=== PATIENT | male | born 1955 | race Caucasian/White ===

== ENCOUNTER → 2016-06-11 | Outpatient (CLI) | payer OTHER ==
[2016-06-11 07:27] LABS: Blood Urea Nitrogen 12 mg/dL (9-20); Non-African American GFR(MDRD) >60 (>60 ml/min/1.73 sqM)
--- NOTE | 2016-06-11 09:27 | MR ---
EXAMINATION TYPE: MR brain wo/w con DATE OF EXAM: 06/11/2016 9:17 AM COMPARISON: NONE HISTORY: tremors, multihance 20ml CONTRAST: Patient received 20 mL intravenous MultiHance gadolinium contrast. Multiplanar and multispin-echo imaging of the brain was performed . Pre and post contrast enhanced i mages are obtained. The ventricles, basal cisterns and sulci overlying the cerebral convexities are minimally enlarged. There is evidence of minimal periventricular white matter ischemic demyelination. Remote deep white matter insults are also noted. No acute edema is seen on diffusion weighted imaging. There is no evidence for midline shift or mass effect. Acute intracranial hemorrhage or extra-axial collection is not evident. No enhancing lesions are seen. The mastoid air cells are well-aerated. Mild chronic ethmoidal sinusitis. IMPRESSION: Minimal Age-related atrophic and chronic small vessel ischemic change. No acute intracranial process at this time. No enhancing lesions are seen.
--- NOTE | 2016-06-11 09:38 | MR ---
EXAMINATION TYPE: MR liver wo/w con DATE OF EXAM: 06/11/2016 9:18 AM COMPARISON: Ultrasound abdomen dated 07/29/2015 HISTORY: per pt. lesion on Liver Multihance 20ml CONTRAST: Standard multiplanar, multisequence MRI departmental protocol utilizing 20 mL intravenous MultiHance gadolinium contrast. FINDINGS: Within the anterior segment right hepatic lobe near the dome of the liver there is a solitary lesion measuring 1.8 cm. The lesion is of increased signal on the T2-weighted data set and of decreased sign al on the T1-weighted data set. Following contrast administration there is peripheral enhancement wit h partial fill in consistent with hemangioma. No additional hepatic lesions are seen. Multiple small gallstones are identified. No evidence for gallbladder wall thickening or pericholecystic fluid. No e vidence for intra or extrahepatic biliary ductal dilatation. The pancreas is homogeneous and free of mass lesion. The spleen is not enlarged. Tiny subcentimeter left renal cortical cyst. No solid renal lesions. No hydronephrosis or nephrolithi asis. IMPRESSION: 1. Hepatic hemangioma. 2. Cholelithiasis.
== END | disposition home or self-care (01) ==
LOC: RADMRIMAIN 07:04
PROVIDERS: ATTEND Psychiatry & Neurology Pain Medicine
DX: G31.1 Senile degeneration of brain, not elsewhere classified (principal); I67.82 Cerebral ischemia; D18.03 Hemangioma of intra-abdominal structures; K80.20 Calculus of gallbladder without cholecystitis without obstruction
CPT/HCPCS: 82565; 84520; 70553; 74183; 36415; A9577

== ENCOUNTER → 2016-06-11 | Outpatient (CLI) | payer OTHER | LOC: RADMRIMAIN 07:21 | PROVIDERS: ATTEND Family Medicine | DX: Z53.9 Procedure and treatment not carried out, unspecified reason (principal) ==

== ENCOUNTER → 2016-06-14 | Outpatient (CLI) | payer OTHER ==
--- NOTE | 2016-06-14 15:02 | NM ---
EXAMINATION TYPE: NM DatScan Brain SPECT DATE OF EXAM: 06/14/2016 2:57 PM COMPARISON: NONE HISTORY: Tremors TECHNIQUE: 10 drops of Lugol's solution was administered 1 hour prior to injection as a thyroid bloc jd agent. After the administration of 4.23 mCi I-123 Ioflupane DaTscan. Images obtained 3 hours p ost injection. SPECT images of the brain were acquired with axial and coronal reconstructions. FINDINGS: The axial SPECT images demonstrate normal background activity. Accounting for head tilt, t here appears to be slight asymmetrically blunted comma-shaped appearance of the right corpus striatum . IMPRESSION: Slightly blunted striatal activity on the left may indicate early changes of idiopathic P arkinson's disease or Parkinsonian syndrome.
== END | disposition home or self-care (01) ==
LOC: RADNMMAIN 09:52
PROVIDERS: ATTEND Psychiatry & Neurology Neurology
DX: G20 Parkinson's disease (principal)
CPT/HCPCS: 78607; A9584

== ENCOUNTER 2016-08-12 06:54 | Day surgery (SDC) | payer OTHER ==
[2016-08-10 09:36] VITALS: BMI 32.3
[~2016-08-12 06:54] MED LIST: DEXAMETHASONE SOD PHOSPHATE 10 MG/ML 1 ML VIAL IV ONE; HEPARIN SODIUM,PORCINE 5,000 UNIT/ML 1 ML VIAL SQ ONE; HYDROmorphone 1 MG/ML 1 ML SYRINGE IVP PRN; LACTATED RINGERS 1,000 ML IV SCH; LIDOCAINE 1% 20 ML VIAL (10MG/ML) FOR IV START INTRADERMA PRN; MIDAZOLAM 2 MG/2 ML VIAL IV PRN; ONDANSETRON 4 MG/2 ML VIAL IVP ONE; SCOPOLAMINE 1.5MG/72HR PATCH TRANSDERM ONE; ceFAZolin 2 GM in SODIUM CHLORIDE 0.9% 100 ML IVPB ONE
[2016-08-12] MEDS ORDERED: IPRATROPIUM-ALBUTEROL 3 ML NEB INHALATION STA (08:36)
[2016-08-12] MEDS ORDERED: BUPIVACAIN-EPI 0.25%-1:200,000 30 ML VIAL SQ ONE ×2 (08:43→09:26)
--- NOTE | 2016-08-12 08:53 | P.GSHP ---
History of Present Illness H&P Date: 08/12/16 Chief Complaint: Right upper quadrant pain This is a 61-year-old male referred from Dr. kuo. Patient points of right quadrant pain. He's had a recent ultrasound shows evidence of cholelithiasis. He presents today for laparoscopic cholecystectomy. 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", parkinsons, leukemia, arthritis in neck History of Any Multi-Drug Resistant Organisms: None Reported Past Surgical History: Hernia Repair, Tonsillectomy Past Anesthesia/Blood Transfusion Reactions: No Reported Reaction Past Psychological History: No Psychological Hx Reported Smoking Status: Current every day smoker Past Alcohol Use History: None Reported Additional Past Alcohol Use History / Comment(s): smokes 1 PPD, since age 21 Past Drug Use History: Marijuana Additional Drug Use History / Comment(s): daily - Past Family History Mother Family Medical History: Cancer Additional Family Medical History / Comment(s): lung Medications and Allergies Home Medications Medication Instructions Recorded Confirmed Type Aspirin [Adult Low Dose Aspirin EC] 81 mg PO DAILY 07/02/15 08/12/16 History Lisinopril [Zestril] 20 mg PO HS 07/02/15 08/12/16 History Baclofen [Lioresal] 20 mg PO QID 08/10/16 08/12/16 History Budesonide-Formot 160-4.5 Mcg 2 puff INHALATION BID 08/10/16 08/12/16 History [Symbicort 160-4.5 Mcg Inhaler] Primidone [Mysoline] 150 mg PO HS 08/10/16 08/12/16 History rOPINIRole HCL [rOPINIRole HCL ER] 2 mg PO TID 08/10/16 08/12/16 History Allergies Allergy/AdvReac Type Severity Reaction Status Date / Time No Known Allergies Allergy Verified 08/12/16 07:14 Surgical - Exam Vital Signs Temp Pulse Resp BP Pulse Ox 97.7 F 83 16 132/78 94 L 08/12/16 07:17 08/12/16 07:17 08/12/16 07:17 08/12/16 07:17 08/12/16 07:17 - General well developed, no distress - Eyes PERRL - ENT normal pinna - Neck no masses - Respiratory normal expansion - Cardiovascular Rhythm: regular - Abdomen Abdomen: soft, non tender Assessment and Plan Plan: Cholelithiasis Chronic cholecystitis We'll perform laparoscopic cholecystectomy
[2016-08-12] MEDS ORDERED: ROCURONIUM BROMIDE 10 MG/ML 10 ML VIAL IV ONE (08:59)
[2016-08-12] MEDS ORDERED: GLYCOPYRROLATE 0.2 MG/ML 2 ML VIAL ONE (08:59)
[2016-08-12] MEDS ORDERED: PROPOFOL 10 MG/ML 20 ML VIAL IV ONE (08:59)
[2016-08-12] MEDS ORDERED: NEOSTIGMINE 1 MG/ML 10 ML VIAL ONE (08:59)
[2016-08-12] MEDS ORDERED: fentaNYL (PF) 50 MCG/ML 2 ML AMP ONE (08:59)
[2016-08-12] MEDS ORDERED: MIDAZOLAM 2 MG/2 ML VIAL ONE (08:59)
[2016-08-12] MEDS ORDERED: HYDROmorphone (PF) 1 MG/ML ONE (08:59)
--- NOTE | 2016-08-12 09:52 | P.OP ---
Date of Procedure: 08/12/16 Preoperative Diagnosis: Cholecystitis Cholelithiasis Postoperative Diagnosis: Cholecystitis Cholelithiasis Procedure(s) Performed: Laparoscopic cholecystectomy Anesthesia: MAC Surgeon: José Miguel Burks Estimated Blood Loss (ml): 5 Pathology: other (Gallbladder) Condition: stable Disposition: PACU Description of Procedure: The patient was placed on the operating table. The patient received a general endotracheal tube anesthesia. The patients abdomen was prepped and draped in the usual sterile fashion. Through an infraumbilical stab incision, the fascia of the anterior abdominal wall was grasped with a pair of Kochers and then the Veress needle was placed in the peritoneal cavity. Position of the Veress needle was confirmed with positive drop test. The abdomen was then insufflated. After adequate insufflation, the 10 mm trocar was placed in the peritoneal cavity. Following this the laparoscope was placed in the peritoneal cavity. The patient was placed in the head-up, right side up position and then a 5 mm trocar was placed in the right lateral and right subcostal position under direct visualization. A 8 mm trocar was placed in the epigastric position. The gallbladder was grasped in the fundus and infundibulum. Traction on the gallbladder was placed in the lateral and the cephalad positions. The triangle of Calot was visualized.. The cystic duct was bluntly dissected until the union of the cystic duct and common bile duct was seen. The cystic duct was then divided and sealed with the Harmonic scissors. A PDS Endoloop was then placed throughout the cystic duct stump. The cystic artery divided and sealed with the Harmonic scissors. The gallbladder was then removed from the liver bed using Harmonic scissors. The gallbladder was then extracted through the epigastric port site. Operative field was checked for any bleeding spots and Harmonic scissors was used to coagulate the liver bed. The abdomen was irrigated. The trocars were removed. The skin was closed using interrupted 3-0 Vicryl suture. Dermabond dressing were applied. The patient tolerated the procedure well.
[2016-08-12 10:08] VITALS: TEMP 97.2
[2016-08-12 10:20] VITALS: RESP 18
[2016-08-12] MEDS ORDERED: KETOROLAC 30 MG/ML 1 ML VIAL IVP ONE (10:23)
[2016-08-12 11:09] VITALS: BP 153/70; PULSE 89
== END 2016-08-12 11:23 | disposition home or self-care (01) ==
LOC: OR 06:54
PROVIDERS: ATTEND Surgery
DX: K80.10 Calculus of gallbladder with chronic cholecystitis without obstruction (principal); R59.0 Localized enlarged lymph nodes; I10 Essential (primary) hypertension; J44.9 Chronic obstructive pulmonary disease, unspecified; I69.354 Hemiplegia and hemiparesis following cerebral infarction affecting left non-dominant side; I69.320 Aphasia following cerebral infarction; G20 Parkinson's disease; N19 Unspecified kidney failure; F17.200 Nicotine dependence, unspecified, uncomplicated; Z79.82 Long term (current) use of aspirin; Z79.51 Long term (current) use of inhaled steroids; Z79.899 Other long term (current) drug therapy
CPT/HCPCS: 47562; 94640; 88304; J2250; J1644; J1100; J2710; J0690; J2405; J3010; J1885; J1170; J2704

== ENCOUNTER 2016-09-03 08:54 | Observation (INO) | payer OTHER ==
[2016-09-03] MEDS ORDERED: SODIUM CHLORIDE 0.9% 1,000 ML IV ONE ×2 (09:01→11:30)
[2016-09-03] MEDS ORDERED: IPRATROPIUM-ALBUTEROL 3 ML NEB INHALATION STA (09:02)
--- NOTE | 2016-09-03 09:14 | ED ---
General Adult HPI - General Stated complaint: Rectal Bleeding Time Seen by Provider: 09/03/16 08:54 Source: RN notes reviewed - History of Present Illness Initial comments: This is a 61-year-old male who presents emergency Department complaining of GI bleed. Patient states he had his gallbladder removed 2 weeks ago and was cleared one week ago. Patient states he has had some bouts of diarrhea which ended 3 days ago but now he appears to be somewhat constipated. Patient states he is still passing gas. Patient also complains of some dysuria as well. Patient denies any hematuria. Patient states he has had no appetite over the last 2 days and has been drinking a lot less over the last 2 days. Patient denies any fever chills per patient denies any chest pain difficulty breathing Bath of breath. Patient denies any back pain. Patient denies any lightheadedness dizziness or near syncopal episode. - Related Data Home Medications Medication Instructions Recorded Confirmed Aspirin [Adult Low Dose Aspirin EC] 81 mg PO DAILY 07/02/15 08/12/16 Lisinopril [Zestril] 20 mg PO HS 07/02/15 08/12/16 Baclofen [Lioresal] 20 mg PO QID 08/10/16 08/12/16 Budesonide-Formot 160-4.5 Mcg 2 puff INHALATION BID 08/10/16 08/12/16 [Symbicort 160-4.5 Mcg Inhaler] Primidone [Mysoline] 150 mg PO HS 08/10/16 08/12/16 rOPINIRole HCL [rOPINIRole HCL ER] 2 mg PO TID 08/10/16 08/12/16 Previous Rx's Medication Instructions Recorded HYDROcodone/APAP 7.5-325MG [Golf 1 each PO Q4H PRN #60 tab 08/12/16 7.5] Allergies Allergy/AdvReac Type Severity Reaction Status Date / Time No Known Allergies Allergy Verified 09/03/16 09:03 Review of Systems ROS Statement: Those systems with pertinent positive or pertinent negative responses have been documented in the HPI. ROS Other: All systems not noted in ROS Statement are negative. 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", parkinsons, leukemia, arthritis in neck History of Any Multi-Drug Resistant Organisms: None Reported Past Surgical History: Hernia Repair, Tonsillectomy Past Anesthesia/Blood Transfusion Reactions: No Reported Reaction Past Psychological History: No Psychological Hx Reported Smoking Status: Current every day smoker Past Alcohol Use History: None Reported Additional Past Alcohol Use History / Comment(s): smokes 1 PPD, since age 21 Past Drug Use History: Marijuana Additional Drug Use History / Comment(s): daily - Past Family History Mother Family Medical History: Cancer Sister(s) Family Medical History: Cancer General Exam - General Exam Comments Initial Comments: GENERAL: Patient is well-developed and well-nourished. Patient is nontoxic and well- hydrated and is in mild distress. ENT: Neck is soft and supple. No significant lymphadenopathy is noted. Oropharynx is clear. Dry mucous membranes. Neck has full range of motion without eliciting any pain. EYES: The sclera were anicteric and conjunctiva were pink and moist. Extraocular movements were intact and pupils were equal round and reactive to light. Eyelids were unremarkable. PULMONARY: Unlabored respirations. Good breath sounds bilaterally. No audible rales rhonchi or wheezing was noted. CARDIOVASCULAR: There is a regular rate and rhythm without any murmurs gallops or rubs. ABDOMEN: Soft and nontender with normal bowel sounds. No palpable organomegaly was noted. There is no palpable pulsatile mass. SKIN: Skin is clear with no lesions or rashes and otherwise unremarkable. NEUROLOGIC: Patient is alert and oriented x3. Cranial nerves II through XII are grossly intact. Motor and sensory are also intact. Normal speech, volume and content. Symmetrical smile. MUSCULOSKELETAL: Normal extremities with adequate strength and full range of motion. No lower extremity swelling or edema. No calf tenderness. LYMPHATICS: No significant lymphadenopathy is noted PSYCHIATRIC: Normal psychiatric evaluation. Normal interpersonal interactions appears functionally intact in deals appropriately with others. No signs of depression. No signs of anxiety. Course Vital Signs 09/03/16 09/03/16 09/03/16 08:59 09:10 09:20 Temperature 98.2 F Pulse Rate 92 93 89 Respiratory 22 24 Rate Blood Pressure 141/71 O2 Sat by Pulse 96 Oximetry Medical Decision Making - Medical Decision Making EKG shows normal sinus rhythm at 83 bpm WI interval is 150 QRS is 90 QT intervals 414 QTC is 486. Patient's EKG shows no ST segment elevation or depression or T wave abnormalities are noted. Spoke with Dr. Hollingsworth she agreed to admit the patient admitted the patient I consult Dr. Burks - Lab Data Result diagrams: 09/03/16 08:55 09/03/16 08:55 Lab Results 09/03/16 09/03/16 09/03/16 Range/Units 08:55 08:55 08:55 WBC 14.1 H (3.8-10.6) k/uL RBC 4.86 (4.30-5.90) m/uL Hgb 15.4 (13.0-17.5) gm/dL Hct 43.0 (39.0-53.0) % MCV 88.4 (80.0-100.0) fL MCH 31.7 (25.0-35.0) pg MCHC 35.8 (31.0-37.0) g/dL RDW 13.4 (11.5-15.5) % Plt Count 201 (150-450) k/uL Neutrophils % 76 % Lymphocytes % 15 % Monocytes % 6 % Eosinophils % 1 % Basophils % 0 % Neutrophils # 10.8 H (1.3-7.7) k/uL Lymphocytes # 2.1 (1.0-4.8) k/uL Monocytes # 0.8 (0-1.0) k/uL Eosinophils # 0.1 (0-0.7) k/uL Basophils # 0.0 (0-0.2) k/uL PT 10.9 (9.0-12.0) sec INR 1.1 (<1.1) APTT 23.9 (22.0-30.0) sec Sodium 136 L (137-145) mmol/L Potassium 4.0 (3.5-5.1) mmol/L Chloride 100 (98-107) mmol/L Carbon Dioxide 26 (22-30) mmol/L Anion Gap 10 mmol/L BUN 25 H (9-20) mg/dL Creatinine 0.81 (0.66-1.25) mg/dL Est GFR (MDRD) Af Amer >60 (>60 ml/min/1.73 sqM) Est GFR (MDRD) Non-Af >60 (>60 ml/min/1.73 sqM) Glucose 98 (74-99) mg/dL Calcium 8.9 (8.4-10.2) mg/dL Total Bilirubin 1.9 H (0.2-1.3) mg/dL AST 96 H (17-59) U/L ALT 61 (21-72) U/L Alkaline Phosphatase 88 (38-126) U/L Total Protein 7.3 (6.3-8.2) g/dL Albumin 3.9 (3.5-5.0) g/dL Urine Color Urine Appearance (Clear) Urine pH (5.0-8.0) Ur Specific [place] (1.001-1.035) Urine Protein (Negative) Urine Glucose (UA) (Negative) Urine Ketones (Negative) Urine Blood (Negative) Urine Nitrite (Negative) Urine Bilirubin (Negative) Urine Urobilinogen (<2.0) mg/dL Ur Leukocyte Esterase (Negative) 09/03/16 Range/Units 10:50 WBC (3.8-10.6) k/uL RBC (4.30-5.90) m/uL Hgb (13.0-17.5) gm/dL Hct (39.0-53.0) % MCV (80.0-100.0) fL MCH (25.0-35.0) pg MCHC (31.0-37.0) g/dL RDW (11.5-15.5) % Plt Count (150-450) k/uL Neutrophils % % Lymphocytes % % Monocytes % % Eosinophils % % Basophils % % Neutrophils # (1.3-7.7) k/uL Lymphocytes # (1.0-4.8) k/uL Monocytes # (0-1.0) k/uL Eosinophils # (0-0.7) k/uL Basophils # (0-0.2) k/uL PT (9.0-12.0) sec INR (<1.1) APTT (22.0-30.0) sec Sodium (137-145) mmol/L Potassium (3.5-5.1) mmol/L Chloride (98-107) mmol/L Carbon Dioxide (22-30) mmol/L Anion Gap mmol/L BUN (9-20) mg/dL Creatinine (0.66-1.25) mg/dL Est GFR (MDRD) Af Amer (>60 ml/min/1.73 sqM) Est GFR (MDRD) Non-Af (>60 ml/min/1.73 sqM) Glucose (74-99) mg/dL Calcium (8.4-10.2) mg/dL Total Bilirubin (0.2-1.3) mg/dL AST (17-59) U/L ALT (21-72) U/L Alkaline Phosphatase (38-126) U/L Total Protein (6.3-8.2) g/dL Albumin (3.5-5.0) g/dL Urine Color Yellow Urine Appearance Clear (Clear) Urine pH 6.0 (5.0-8.0) Ur Specific [place] 1.022 (1.001-1.035) Urine Protein Trace H (Negative) Urine Glucose (UA) Negative (Negative) Urine Ketones 2+ H (Negative) Urine Blood Negative (Negative) Urine Nitrite Negative (Negative) Urine Bilirubin 1+ H (Negative) Urine Urobilinogen >12.0 (<2.0) mg/dL Ur Leukocyte Esterase Negative (Negative) Disposition Clinical Impression: GI bleed Disposition: ADMITTED IP TO THIS [facility] Time of Disposition: 11:30
[2016-09-03 09:18] LABS: Basophils % (A) 0 %; CH 31.6; Eosinophils # (A) 0.1 k/uL (0-0.7); Eosinophils % (A) 1 %; HDW 2.52; HGB 15.4 gm/dL (13.0-17.5); Luc # (Auto) 0.31; Luc % (Auto) 2; Lymphocytes # (A) 2.1 k/uL (1.0-4.8); Lymphocytes % (A) 15 %; MCH 31.7 pg (25.0-35.0); MCHC 35.8 g/dL (31.0-37.0); MCV 88.4 fL (80.0-100.0); Mean Platelet Volume 7.5; Monocytes # (A) 0.8 k/uL (0-1.0); Monocytes % (A) 6 %; Neutrophils # (A) 10.8 k/uL (1.3-7.7); Neutrophils % (A) 76 %; RBC 4.86 m/uL (4.30-5.90); RDW 13.4 % (11.5-15.5); WBC 14.1 k/uL (3.8-10.6); WBC (Perox) 14.22
[2016-09-03 09:21] LABS: INR 1.1 (<1.1); Partial Thromboplastin Time 23.9 sec (22.0-30.0); Prothrombin Time 10.9 sec (9.0-12.0)
[2016-09-03 09:23] LABS: ALT 61 U/L (21-72); AST 96 U/L (17-59); Alkaline Phosphatase 88 U/L (38-126); Anion Gap 10 mmol/L; Blood Urea Nitrogen 25 mg/dL (9-20); Calcium 8.9 mg/dL (8.4-10.2); Carbon Dioxide 26 mmol/L (22-30); Chloride 100 mmol/L (98-107); Glucose 98 mg/dL (74-99); Non-African American GFR(MDRD) >60 (>60 ml/min/1.73 sqM); Sodium 136 mmol/L (137-145); Total Bilirubin 1.9 mg/dL (0.2-1.3); Total Protein 7.3 g/dL (6.3-8.2)
--- NOTE | 2016-09-03 09:54 | XR ---
EXAMINATION TYPE: XR chest 2V DATE OF EXAM: 09/03/2016 9:49 AM COMPARISON: Chest x-ray July 12, 2013 HISTORY: Difficulty in breathing. TECHNIQUE: Frontal and lateral views of the chest are obtained. FINDINGS: There is chronic parenchymal change without suspicious focal air space opacity, pleural ef fusion, or pneumothorax seen. The cardiac silhouette size is stable and upper limits of normal with atherosclerotic thoracic aorta. Some new mild central vascular congestion is present. The osseous st ructures are demineralized. IMPRESSION: New mild central vascular congestion suggesting fluid overload state or mild CHF exacerbation. Clinic al correlation advised.
--- NOTE | 2016-09-03 11:09 | XR ---
EXAMINATION TYPE: XR KUB DATE OF EXAM: 09/03/2016 10:58 AM CLINICAL HISTORY: Rectal bleeding and hematuria. TECHNIQUE: 2 upright KUB images of the abdomen are obtained COMPARISON: None. FINDINGS: Scattered gas is seen in non-distended small bowel loops. Gas and fecal material is seen in non-distended colon. Right-sided calcifications are seen in pelvis near groin level. There is occa sional scattered pelvic phleboliths. No pneumoperitoneum is identified. Lung bases are clear. Visuali zed osseous structures are intact. IMPRESSION: Overall nonobstructive bowel gas pattern.
[2016-09-03 11:13] LABS: Appearance,Urine Clear (Clear); Bilirubin,Urine 1+ (Negative); Glucose,Urine (UA) Negative (Negative); Ketones,Urine 2+ (Negative); Leukocyte Esterase,Urine Negative (Negative); Nitrite,Urine Negative (Negative); Protein,Urine Trace (Negative); Specific Gravity,Urine 1.022 (1.001-1.035); UA Billing (MACRO vs. MICRO) CHEM; Urobilinogen,Urine >12.0 mg/dL (<2.0)
[2016-09-03] MEDS ORDERED: BACLOFEN 10 MG TAB PO PRN (14:53)
[2016-09-03] MEDS ORDERED: traMADol 50 MG TAB PO PRN (14:53)
[2016-09-03] MEDS ORDERED: ALBUTEROL NEBULIZED 2.5 MG/3 ML INHALATION PRN ×2 (14:54→15:03)
--- NOTE | 2016-09-03 16:35 | P.HPIM ---
History of Present Illness H&P Date: 09/03/16 Chief Complaint: Bright red blood per rectum This is a pleasant 61-year-old woman patient of Dr. Springer and Dr. acuna, he presented to emergency room secondary to acute lower GI bleeding. He underwent a recent laparoscopic cholecystectomy by Dr. acuna on 08/12/2016, it was uncomplicated, patient had been discharged to home. 2 days ago he complained offdiarrhea which now has improved and has no bowel alteration with constipation, he also has anorexia for 2 days diminished fluid intake with no vomiting, patient has fever, chills no shortness of breath, he also had sweatss and left lwoer abominal pain Patient had prior colonoscopy procedures 2 years ago showing diverticular disease. He was admitted for a suspected diverticulitis with hematochezia Review of Systems Constitutional: Reports as per HPI, Reports anorexia, Denies chills, Denies chronic headaches, Denies chronic pain, Denies daytime sleepiness, Denies fatigue, Denies fever, Denies lethargy, Denies malaise, Denies night sweats, Denies poor appetite, Denies sweats, Denies weakness, Denies weight gain, Denies weight loss Ears, nose, mouth and throat: Reports as per HPI, Denies ant. neck pain, Denies bleeding gums, Denies dental pain, Denies dysphagia, Denies epistaxis, Denies headache, Denies hoarseness, Denies mouth pain, Denies nasal congestion, Denies nasal discharge, Denies neck fullness/pressure, Denies neck lump, Denies nose pain, Denies odynophagia, Denies post-nasal drip, Denies sinus pain, Denies sinus pressure, Denies swelling in mouth, Denies swelling in throat, Denies sore throat, Denies vertigo, Denies voice changes Cardiovascular: Reports as per HPI, Denies chest pain, Denies claudication, Denies decreased exercise tolerance, Denies dyspnea on exertion, Denies edema, Denies high blood pressure, Denies irregular heart beat, Denies leg edema, Denies lightheadedness, Denies orthopnea, Denies palpitations, Denies paroxysmal nocturnal dyspnea, Denies phlebitis, Denies rapid heart beat, Denies shortness of breath, Denies syncope Respiratory: Reports as per HPI Gastrointestinal: Reports as per HPI, Denies abdominal pain, Denies belching, Denies bloating, Denies BRBPR, Denies change in bowel habits, Denies coffee ground emesis, Denies constipation, Denies diarrhea, Denies dyspepsia, Denies early satiety, Denies excessive gas, Denies heartburn, Denies hematemesis, Denies hematochezia, Denies indigestion, Denies jaundice, Denies lactose intolerance, Denies loss of appetite, Denies melena, Denies nausea, Denies vomiting Genitourinary: Reports as per HPI, Denies decreased libido, Denies difficulties fathering child, Denies discharge, Denies dysuria, Denies erectile dysfunction, Denies flank pain, Denies genital pain, Denies genital sores, Denies hematuria, Denies impotence, Denies incontinence, Denies kidney stones, Denies nocturia, Denies polyuria, Denies testicular lump, Denies testicular pain, Denies urinary frequency, Denies urinary hesitancy, Denies urinary retention Musculoskeletal: Reports as per HPI, Denies arm numbness/tingling, Denies atrophy, Denies fractures, Denies frequent falls, Denies gait dysfunction, Denies hot joints, Denies leg numbness/tingling, Denies limitation of motion, Denies loss of height, Denies low back pain, Denies morning stiffness, Denies muscle cramps, Denies muscle weakness, Denies myalgias, Denies neck pain, Denies neck stiffness, Denies prior amputations, Denies redness of joints, Denies shooting arm pain, Denies shooting leg pain Integumentary: Reports as per HPI Neurological: Reports as per HPI, Denies aphasia, Denies ataxia, Denies balance difficulties, Denies burning pain, Denies change in mentation, Denies change in smell/taste, Denies change in speech, Denies confusion, Denies convulsions, Denies double vision, Denies gait dysfunction, Denies head injury, Denies headaches, Denies hearing difficulties, Denies lack of coordination, Denies loss of vision, Denies memory loss, Denies migraines, Denies motor disturbance, Denies numbness, Denies paralysis, Denies paresthesias, Denies seizures, Denies sensory deficit, Denies spasticity, Denies syncope, Denies tic, Denies tingling , Denies transient paralysis, Denies tremors, Denies vertigo, Denies weakness, Denies visual changes Psychiatric: Reports as per HPI, Denies anhedonia, Denies anxiety, Denies anxiety attacks, Denies change in appetite, Denies change in libido, Denies change in sleep habits, Denies confusion, Denies depression, Denies difficulty concentrating, Denies disorientation, Denies hallucinations, Denies hopelessness , Denies hypersomnia, Denies insomnia, Denies irritability, Denies memory loss, Denies mood swings, Denies paranoia, Denies sadness/tearfulness, Denies sleep disturbances, Denies suicidal ideation Endocrine: Reports as per HPI, Denies cold intolerance, Denies deepening of the voice, Denies excessive sweating, Denies excessive thirst, Denies fatigue, Denies flushing, Denies heat intolerance, Denies high blood sugars, Denies increase in ring/shoe/hat size, Denies low blood sugars, Denies nocturia, Denies palpitations, Denies polydipsia, Denies polyphagia, Denies polyuria, Denies proptosis, Denies recent glucocorticoid use, Denies thyroid mass, Denies weight change Hematologic/Lymphatic: Reports as per HPI, Denies easy bleeding, Denies easy bruising, Denies lymphadenopathy, Denies lymphedema, Denies thrombophilia Allergic/Immunologic: Reports as per HPI, Denies allergic rhinitis, Denies anaphylaxis, Denies angioedema, Denies gluten intolerance, Denies persistent infections, Denies seasonal allergies, Denies urticaria, Denies wheezing 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", parkinsons, leukemia, arthritis in neck History of Any Multi-Drug Resistant Organisms: None Reported Past Surgical History: Cholecystectomy, Hernia Repair, Tonsillectomy Past Anesthesia/Blood Transfusion Reactions: No Reported Reaction Past Psychological History: No Psychological Hx Reported Smoking Status: Current every day smoker Past Alcohol Use History: None Reported Additional Past Alcohol Use History / Comment(s): smokes 1 PPD, since age 21 Past Drug Use History: Marijuana Additional Drug Use History / Comment(s): daily - Past Family History Mother Family Medical History: Cancer Sister(s) Family Medical History: Cancer Medications and Allergies Home Medications Medication Instructions Recorded Confirmed Type Aspirin [Adult Low Dose Aspirin EC] 81 mg PO DAILY 07/02/15 09/03/16 History Lisinopril [Zestril] 20 mg PO W/SUPPER 07/02/15 09/03/16 History Baclofen [Lioresal] 20 mg PO QID PRN 08/10/16 09/03/16 History Budesonide-Formot 160-4.5 Mcg 2 puff INHALATION RT-BID 08/10/16 09/03/16 History [Symbicort 160-4.5 Mcg Inhaler] Primidone [Mysoline] 200 mg PO HS 08/10/16 09/03/16 History Albuterol Inhaler [Ventolin Hfa 1 - 2 puff INHALATION RT-Q6H PRN 09/03/16 History Inhaler] rOPINIRole HCL [Requip] 2 mg PO TID 09/03/16 09/03/16 History traMADol HCL [Ultram] 50 mg PO BID PRN 09/03/16 09/03/16 History Allergies Allergy/AdvReac Type Severity Reaction Status Date / Time No Known Allergies Allergy Verified 09/03/16 12:01 Physical Exam Vitals: Vital Signs Temp Pulse Pulse Resp BP BP Pulse Ox 09/03/16 15:32 97.6 F 98 16 120/58 95 09/03/16 13:03 16 09/03/16 12:43 97.5 F L 77 16 185/79 95 09/03/16 12:06 97.9 F 78 18 118/55 98 09/03/16 11:34 97.9 F 81 20 121/61 95 - Constitutional General appearance: cooperative, no acute distress, obese - EENT Eyes: anicteric sclerae, EOMI, PERRLA, dentition normal ENT: hearing grossly normal, NA/AT, normal oropharynx - Neck Neck: no lymphadenopathy, normal ROM, no other, no rigidity, no stridor, no thyromegaly Thyroid: bilateral: normal size - Respiratory Respiratory: bilateral: CTA, negative: diminished, dullness, rales - Cardiovascular Rhythm: regular Abnormal Heart Sounds: no systolic murmur, no diastolic murmur, no rub, no S3 Gallop, no S4 Gallop, no click, no other - Gastrointestinal General gastrointestinal: normal bowel sounds, soft - Integumentary Integumentary: normal, normal turgor - Neurologic Neurologic: CNII-XII intact - Musculoskeletal Musculoskeletal: strength equal bilaterally - Psychiatric Psychiatric: A&O x's 3, appropriate affect, intact judgment & insight Results CBC & Chem 7: 09/04/16 05:21 09/03/16 08:55 Labs: Laboratory Results WBC 14.1 k/uL (3.8-10.6) H 09/03/16 08:55 RBC 4.86 m/uL (4.30-5.90) 09/03/16 08:55 Hgb 15.4 gm/dL (13.0-17.5) 09/03/16 08:55 Hct 43.0 % (39.0-53.0) 09/03/16 08:55 MCV 88.4 fL (80.0-100.0) 09/03/16 08:55 MCH 31.7 pg (25.0-35.0) 09/03/16 08:55 MCHC 35.8 g/dL (31.0-37.0) 09/03/16 08:55 RDW 13.4 % (11.5-15.5) 09/03/16 08:55 Plt Count 201 k/uL (150-450) 09/03/16 08:55 Neutrophils % 76 % 09/03/16 08:55 Lymphocytes % 15 % 09/03/16 08:55 Monocytes % 6 % 09/03/16 08:55 Eosinophils % 1 % 09/03/16 08:55 Basophils % 0 % 09/03/16 08:55 Neutrophils # 10.8 k/uL (1.3-7.7) H 09/03/16 08:55 Lymphocytes # 2.1 k/uL (1.0-4.8) 09/03/16 08:55 Monocytes # 0.8 k/uL (0-1.0) 09/03/16 08:55 Eosinophils # 0.1 k/uL (0-0.7) 09/03/16 08:55 Basophils # 0.0 k/uL (0-0.2) 09/03/16 08:55 PT 10.9 sec (9.0-12.0) 09/03/16 08:55 INR 1.1 (<1.1) 09/03/16 08:55 APTT 23.9 sec (22.0-30.0) 09/03/16 08:55 Sodium 136 mmol/L (137-145) L 09/03/16 08:55 Potassium 4.0 mmol/L (3.5-5.1) 09/03/16 08:55 Chloride 100 mmol/L (98-107) 09/03/16 08:55 Carbon Dioxide 26 mmol/L (22-30) 09/03/16 08:55 Anion Gap 10 mmol/L 09/03/16 08:55 BUN 25 mg/dL (9-20) H 09/03/16 08:55 Creatinine 0.81 mg/dL (0.66-1.25) 09/03/16 08:55 Est GFR (MDRD) Af Amer >60 (>60 ml/min/1.73 sqM) 09/03/16 08:55 Est GFR (MDRD) Non-Af >60 (>60 ml/min/1.73 sqM) 09/03/16 08:55 Glucose 98 mg/dL (74-99) 09/03/16 08:55 Calcium 8.9 mg/dL (8.4-10.2) 09/03/16 08:55 Total Bilirubin 1.9 mg/dL (0.2-1.3) H 09/03/16 08:55 AST 96 U/L (17-59) H 09/03/16 08:55 ALT 61 U/L (21-72) 09/03/16 08:55 Alkaline Phosphatase 88 U/L (38-126) 09/03/16 08:55 Total Protein 7.3 g/dL (6.3-8.2) 09/03/16 08:55 Albumin 3.9 g/dL (3.5-5.0) 09/03/16 08:55 Urine Color Yellow 09/03/16 10:50 Urine Appearance Clear (Clear) 09/03/16 10:50 Urine pH 6.0 (5.0-8.0) 09/03/16 10:50 Ur Specific [place] 1.022 (1.001-1.035) 09/03/16 10:50 Urine Protein Trace (Negative) H 09/03/16 10:50 Urine Glucose (UA) Negative (Negative) 09/03/16 10:50 Urine Ketones 2+ (Negative) H 09/03/16 10:50 Urine Blood Negative (Negative) 09/03/16 10:50 Urine Nitrite Negative (Negative) 09/03/16 10:50 Urine Bilirubin 1+ (Negative) H 09/03/16 10:50 Urine Urobilinogen >12.0 mg/dL (<2.0) 09/03/16 10:50 Ur Leukocyte Esterase Negative (Negative) 09/03/16 10:50 Thrombosis Risk Factor Assmnt - Choose All That Apply Each Factor Represents 1 point: Abnormal pulmonary function (COPD), Age 41-60 years Each Risk Factor Represents 2 Points: Laparoscopic surgery Thrombosis Risk Factor Assessment Total Risk Factor Score: 4 Thrombosis Risk Factor Assessment Level: Moderate Risk Assessment and Plan Plan: 1. Acute lower GI bright red blood bleeding, diverticulitis with diverticular bleed is suspected, had bowel alteration altogether internal hemorrhoids and external hemorrhoids cannot be ruled out, patient will be made nothing by mouth with this in consultation by Dr. Burks, hemoglobin would be monitored, IV hydration, IV antibiotic, will tart with clears today. IV Cipro and IV flagy 2. Recent laparoscopic cholecystectomy 08/12/2016 without any complications 3. History of hypertension on Zestril 20 mg at bedtime 4. COPD without any exacerbation on Symbicort maintenance 5. History of leukemia 7. History of Parkinson's on baclofen and Mysoline ropinirole no changes were made matters resumed 5. Prior history of CVA with dysarthria and left hemiparesis since 2013, chronic on aspirin 81 mg daily and Zestril GI prophylaxis and DVT prophylaxis using omeprazole and EMILIA hose
[2016-09-03] MEDS: PANTOPRAZOLE 40 MG/10 ML VIAL IVP SCH (17:14)
[2016-09-03] MEDS: LISINOPRIL 20 MG TAB PO SCH (17:15)
[2016-09-03] MEDS: LEVOFLOXACIN 500MG-D5W PMX 500 MG in DEXTROSE/WATER 1 100ML.BAG IVPB SCH (17:17)
[2016-09-03] MEDS: metroNIDAZOLE-NS PMX 500 MG in SALINE 1 100ML.BAG IVPB SCH ×2 (18:31→23:27)
[2016-09-03] MEDS: SYMBICORT 160-4.5 MCG INHALER INHALATION SCH (20:41)
[2016-09-03] MEDS: PRIMIDONE 50 MG TAB PO SCH (20:59)
[2016-09-03 23:10] LABS: Basophils % (A) 0 %; CH 31.2; CHCM 34.9; Eosinophils # (A) 0.1 k/uL (0-0.7); Eosinophils % (A) 0 %; HCT 39.9 % (39.0-53.0); HDW 2.53; HGB 13.8 gm/dL (13.0-17.5); Luc # (Auto) 0.27; Luc % (Auto) 3; Lymphocytes # (A) 2.4 k/uL (1.0-4.8); Lymphocytes % (A) 22 %; MCHC 34.6 g/dL (31.0-37.0); MCV 89.7 fL (80.0-100.0); Mean Platelet Volume 7.6; Monocytes # (A) 0.6 k/uL (0-1.0); Monocytes % (A) 6 %; Neutrophils # (A) 7.5 k/uL (1.3-7.7); Neutrophils % (A) 69 %; RBC 4.45 m/uL (4.30-5.90); RDW 13.5 % (11.5-15.5); WBC 10.9 k/uL (3.8-10.6); WBC (Perox) 11.28
[2016-09-03] MEDS ORDERED: ONDANSETRON 4 MG/2 ML VIAL IVP STA (23:31)
[2016-09-04 05:45] LABS: Basophils % (A) 1 %; CH 31.3; CHCM 34.8; Eosinophils # (A) 0.1 k/uL (0-0.7); Eosinophils % (A) 1 %; HCT 38.9 % (39.0-53.0); HDW 2.57; HGB 13.6 gm/dL (13.0-17.5); Luc # (Auto) 0.26; Luc % (Auto) 3; Lymphocytes # (A) 2.1 k/uL (1.0-4.8); Lymphocytes % (A) 26 %; MCH 31.7 pg (25.0-35.0); MCV 90.4 fL (80.0-100.0); Mean Platelet Volume 7.2; Monocytes # (A) 0.5 k/uL (0-1.0); Monocytes % (A) 6 %; Neutrophils # (A) 5.3 k/uL (1.3-7.7); Neutrophils % (A) 64 %; RDW 13.5 % (11.5-15.5); WBC 8.3 k/uL (3.8-10.6); WBC (Perox) 8.88
[2016-09-04] MEDS: PANTOPRAZOLE 40 MG/10 ML VIAL IVP SCH (08:28)
[2016-09-04] MEDS: SYMBICORT 160-4.5 MCG INHALER INHALATION SCH ×2 (08:38→19:08)
[2016-09-04] MEDS: metroNIDAZOLE-NS PMX 500 MG in SALINE 1 100ML.BAG IVPB SCH ×3 (09:12→22:39)
[2016-09-04] MEDS: ONDANSETRON 4 MG/2 ML VIAL IVP PRN ×2 (11:06→16:01)
--- NOTE | 2016-09-04 13:48 | P.GSCN ---
History of Present Illness Consult date: 09/04/16 Reason for Consult: GI bleed History of present illness: This is a 61-year-old male who's had complaints of rectal bleeding. Patient states he noticed blood in the [place] at home. He has undergone laparoscopic cholecystectomy 4 weeks ago. He denies any constipation from pain meds. 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", parkinsons, leukemia, arthritis in neck History of Any Multi-Drug Resistant Organisms: None Reported Past Surgical History: Cholecystectomy, Hernia Repair, Tonsillectomy Past Anesthesia/Blood Transfusion Reactions: No Reported Reaction Past Psychological History: No Psychological Hx Reported Smoking Status: Current every day smoker Past Alcohol Use History: None Reported Additional Past Alcohol Use History / Comment(s): smokes 1 PPD, since age 21 Past Drug Use History: Marijuana Additional Drug Use History / Comment(s): daily - Past Family History Mother Family Medical History: Cancer Sister(s) Family Medical History: Cancer Medications and Allergies Home Medications Medication Instructions Recorded Confirmed Type Aspirin [Adult Low Dose Aspirin EC] 81 mg PO DAILY 07/02/15 09/03/16 History Lisinopril [Zestril] 20 mg PO W/SUPPER 07/02/15 09/03/16 History Baclofen [Lioresal] 20 mg PO QID PRN 08/10/16 09/03/16 History Budesonide-Formot 160-4.5 Mcg 2 puff INHALATION RT-BID 08/10/16 09/03/16 History [Symbicort 160-4.5 Mcg Inhaler] Primidone [Mysoline] 200 mg PO HS 08/10/16 09/03/16 History Albuterol Inhaler [Ventolin Hfa 1 - 2 puff INHALATION RT-Q6H PRN 09/03/16 History Inhaler] rOPINIRole HCL [Requip] 2 mg PO TID 09/03/16 09/03/16 History traMADol HCL [Ultram] 50 mg PO BID PRN 09/03/16 09/03/16 History Allergies Allergy/AdvReac Type Severity Reaction Status Date / Time No Known Allergies Allergy Verified 09/03/16 12:01 Surgical - Exam Vital Signs Temp Pulse Resp BP Pulse Ox 98.2 F 92 22 141/71 96 09/03/16 08:59 09/03/16 08:59 09/03/16 08:59 09/03/16 08:59 09/03/16 08:59 - General well developed, no distress - Eyes PERRL - ENT normal pinna - Neck no masses - Respiratory normal expansion - Cardiovascular Rhythm: regular - Abdomen Abdomen: soft, non tender Results - Labs 09/04/16 05:21 09/03/16 08:55 Abnormal Lab Results - Last 24 Hours (Table) 09/03/16 09/04/16 Range/Units 22:33 05:21 WBC 10.9 H (3.8-10.6) k/uL Hct 38.9 L (39.0-53.0) % Assessment and Plan Plan: GI bleed. Patient was scheduled for upper and lower endoscopy.
[2016-09-04] MEDS ORDERED: PEG 3350-NA SULF,BICARB,CL/KCL 4,000 ML BOTTLE PO ONE (13:49)
[2016-09-04] MEDS: LISINOPRIL 20 MG TAB PO SCH (17:08)
[2016-09-04] MEDS: LEVOFLOXACIN 500MG-D5W PMX 500 MG in DEXTROSE/WATER 1 100ML.BAG IVPB SCH (17:08)
--- NOTE | 2016-09-04 18:41 | P.PN ---
Subjective This is a pleasant 61-year-old woman patient of Dr. Springer and Dr. acuna, he presented to emergency room secondary to acute lower GI bleeding. He underwent a recent laparoscopic cholecystectomy by Dr. acuna on 08/12/2016, it was uncomplicated, patient had been discharged to home. 2 days ago he complained offdiarrhea which now has improved and has no bowel alteration with constipation, he also has anorexia for 2 days diminished fluid intake with no vomiting, patient has fever, chills no shortness of breath, he also had sweatss and left lwoer abominal pain Patient had prior colonoscopy procedures 2 years ago showing diverticular disease. He was admitted for a suspected diverticulitis with hematochezia ' 4:30: Patient is doing well, he had minimal left lower quadrant abdominal pain, he had significant nausea and vomiting, patient was seen by general surgery for which plans for colonoscopy to be made in the morning Objective - Vital Signs Vital signs: Vital Signs Temp 97.4 F L 09/04/16 16:00 Pulse 76 09/04/16 16:00 Resp 16 09/04/16 16:00 BP 129/59 09/04/16 16:00 Pulse Ox 93 L 09/04/16 16:00 Intake & Output 09/03/16 09/04/16 09/04/16 18:59 06:59 18:59 Intake Total 950 Balance 950 Intake: Intake, IV Titration 650 Amount Sodium Chloride 0.9% 1, 650 000 ml @ 100 mls/hr IV . Q10H ONE Rx#:[id number] Oral 300 Other: Voiding Method Toilet Toilet # Voids 1 - Constitutional General appearance: Present: cooperative, no acute distress, obese - EENT Eyes: Present: anicteric sclerae, EOMI, PERRLA, dentition normal, normal appearance ENT: Present: hearing grossly normal, NA/AT, normal oropharynx - Neck Neck: Present: normal ROM - Respiratory Respiratory: bilateral: CTA, negative: diminished, dullness, rhonchi - Cardiovascular Abnormal Heart Sounds: Absent: systolic murmur, diastolic murmur, rub, S3 Gallop , S4 Gallop, click, other - Gastrointestinal General gastrointestinal: Present: normal bowel sounds, soft - Integumentary Integumentary: Present: decreased turgor, normal - Neurologic Neurologic: Present: CNII-XII intact - Musculoskeletal Musculoskeletal: Present: gait normal, strength equal bilaterally - Psychiatric Psychiatric: Present: A&O x's 3, appropriate affect, intact judgment & insight - Labs CBC & Chem 7: 09/04/16 05:21 09/03/16 08:55 Labs: Abnormal Lab Results - Last 24 Hours (Table) 09/03/16 09/04/16 Range/Units 22:33 05:21 WBC 10.9 H (3.8-10.6) k/uL Hct 38.9 L (39.0-53.0) % Assessment and Plan Plan: 1. Acute lower GI bright red blood bleeding, diverticulitis with diverticular bleed is suspected, had bowel alteration altogether internal hemorrhoids and external hemorrhoids cannot be ruled out, patient will be made nothing by mouth with this in consultation by Dr. Burks, hemoglobin would be monitored, IV hydration, IV antibiotic, will start with clears today. IV Cipro and IV flagy, plans for colonoscopy September 05 Dr. Burks 2. Recent laparoscopic cholecystectomy 08/12/2016 without any complications 3. History of hypertension on Zestril 20 mg at bedtime 4. COPD without any exacerbation on Symbicort maintenance 5. History of leukemia 7. History of Parkinson's on baclofen and Mysoline ropinirole no changes were made matters resumed 5. Prior history of CVA with dysarthria and left hemiparesis since 2013, chronic on aspirin 81 mg daily and Zestril GI prophylaxis and DVT prophylaxis using omeprazole and EMILIA hose
[2016-09-04] MEDS: PRIMIDONE 50 MG TAB PO SCH (20:02)
[2016-09-05] MEDS: ONDANSETRON 4 MG/2 ML VIAL IVP PRN ×2 (06:23→21:36)
[2016-09-05] MEDS: SYMBICORT 160-4.5 MCG INHALER INHALATION SCH ×2 (07:08→21:39)
[2016-09-05] MEDS: PANTOPRAZOLE 40 MG/10 ML VIAL IVP SCH (08:30)
[2016-09-05] MEDS: metroNIDAZOLE-NS PMX 500 MG in SALINE 1 100ML.BAG IVPB SCH ×3 (09:57→23:51)
[2016-09-05] MEDS ORDERED: PROPOFOL 10 MG/ML 20 ML VIAL IV ONE (12:20)
[2016-09-05] MEDS ORDERED: IV FLUID CONTINUATION 400 ML IV ONE (12:21)
[2016-09-05] MEDS ORDERED: IV FLUID CONTINUATION 1,000 ML IV ONE (12:51)
--- NOTE | 2016-09-05 12:53 | P.OP ---
Date of Procedure: 09/05/16 Preoperative Diagnosis: GI bleed Postoperative Diagnosis: Antral gastritis Small hiatal hernia Esophagitis Kayla- rectal abscess Procedure(s) Performed: EGD Colonoscopy Anesthesia: MAC Surgeon: José Miguel Burks Pathology: other (Antrum, esophagus) Condition: stable Disposition: PACU Description of Procedure: Patient's placed on the endoscopy table in the lateral position. He received IV sedation. The gastroscope some placed oropharynx and passed into the esophagus and into the stomach. The scope was then placed through the pylorus. The first and second portion of the duodenum appeared normal. Scope was then brought back the antrum and this was mildly inflamed a biopsies performed. The scope was then retroflexed and remainder stomach appeared normal. There was a small hiatal hernia. The GE junction was at 47 is. The distal esophagus appeared mildly inflamed a biopsies performed. The proximal esophagus appeared normal. Scope was withdrawn for patient. Next digital rectal exam was performed. There is evidence of a healing perirectal abscess in the midline posterior position. There was a small amount of blood seen from this healing perirectal abscess area. The flexible colonoscope was then placed patient anus passed throughout the entire colon. The ileocecal valve was visualized. Cecum, ascending transverse and descending colon appeared normal. The sigmoid colon and rectum appeared normal. There is known to blood in the colon. Scope was withdrawn for patient.
--- NOTE | 2016-09-05 15:19 | P.PN ---
Subjective This is a pleasant 61-year-old woman patient of Dr. Springer and Dr. acuna, he presented to emergency room secondary to acute lower GI bleeding. He underwent a recent laparoscopic cholecystectomy by Dr. acuna on 08/12/2016, it was uncomplicated, patient had been discharged to home. 2 days ago he complained offdiarrhea which now has improved and has no bowel alteration with constipation, he also has anorexia for 2 days diminished fluid intake with no vomiting, patient has fever, chills no shortness of breath, he also had sweatss and left lwoer abominal pain Patient had prior colonoscopy procedures 2 years ago showing diverticular disease. He was admitted for a suspected diverticulitis with hematochezia ' 4:30: Patient is doing well, he had minimal left lower quadrant abdominal pain, he had significant nausea and vomiting, patient was seen by general surgery for which plans for colonoscopy to be made in the morning 09/05: Patient is status post EGD and colonoscopy with Dr. Burks on September 05 finding antral gastritis, small hiatal hernia, esophagitis, perirectal abscess with small amount of blood seen from this healing perirectal abscess area. Diet is to be advanced. Anticipate discharge home tomorrow. Objective - Vital Signs Vital signs: Vital Signs Temp 97.8 F 09/05/16 15:09 Pulse 65 09/05/16 15:09 Resp 16 09/05/16 15:09 BP 123/70 09/05/16 15:09 Pulse Ox 95 09/05/16 15:09 Intake & Output 09/04/16 09/05/16 09/05/16 18:59 06:59 18:59 Intake Total 350 900 Output Total 125 Balance 350 775 Weight 108.862 kg Intake: IV 900 IV Fluid Continuation 1, 500 000 ml As IV .STK-MED ONE Rx#:[id number] Oral 350 Output: Urine 125 Other: Voiding Method Toilet Toilet # Voids 1 2 # Bowel Movements 1 - Exam General appearance: Present: cooperative, no acute distress, obese - EENT Eyes: Present: anicteric sclerae, EOMI, PERRLA, dentition normal, normal appearance ENT: Present: hearing grossly normal, NA/AT, normal oropharynx - Neck Neck: Present: normal ROM - Respiratory Respiratory: bilateral: CTA, negative: diminished, dullness, rhonchi - Cardiovascular Abnormal Heart Sounds: Absent: systolic murmur, diastolic murmur, rub, S3 Gallop , S4 Gallop, click, other - Gastrointestinal General gastrointestinal: Present: normal bowel sounds, soft - Integumentary Integumentary: Present: decreased turgor, normal - Neurologic Neurologic: Present: CNII-XII intact - Musculoskeletal Musculoskeletal: Present: gait normal, strength equal bilaterally - Psychiatric Psychiatric: Present: A&O x's 3, appropriate affect, intact judgment & insight - Labs CBC & Chem 7: 09/04/16 05:21 09/03/16 08:55 Assessment and Plan Plan: 1. Acute lower GI bright red blood bleeding, diverticulitis with diverticular bleed is suspected, had bowel alteration altogether internal hemorrhoids and external hemorrhoids cannot be ruled out, patient will be made nothing by mouth with this in consultation by Dr. Burks, hemoglobin would be monitored, IV hydration, IV antibiotic, will start with clears today. IV Levaquin and IV flagy , plans for colonoscopy September 05 Dr. Burks. [place] advance diet and possible discharge tomorrow. 2. Recent laparoscopic cholecystectomy 08/12/2016 without any complications 3. History of hypertension on Zestril 20 mg at bedtime 4. COPD without any exacerbation on Symbicort maintenance 5. History of leukemia 7. History of Parkinson's on baclofen and Mysoline ropinirole no changes were made matters resumed 5. Prior history of CVA with dysarthria and left hemiparesis since 2014, chronic on aspirin 81 mg daily and Zestril GI prophylaxis and DVT prophylaxis using omeprazole and EMILIA hose Discharge plan: Return home Impression and plan of care have been directed as dictated by the signing physician. Helene Arguello nurse practitioner acting as scribe for signing physician. Time with Patient: Greater than 30
[2016-09-05] MEDS: LISINOPRIL 20 MG TAB PO SCH (17:38)
[2016-09-05] MEDS: LEVOFLOXACIN 500MG-D5W PMX 500 MG in DEXTROSE/WATER 1 100ML.BAG IVPB SCH (17:38)
[2016-09-05] MEDS: PRIMIDONE 50 MG TAB PO SCH (21:33)
[2016-09-06 07:41] VITALS: BP 148/66; RESP 17; TEMP 98.2
[2016-09-06] MEDS: PANTOPRAZOLE 40 MG/10 ML VIAL IVP SCH (07:50)
[2016-09-06] MEDS: SYMBICORT 160-4.5 MCG INHALER INHALATION SCH (08:40)
[2016-09-06] MEDS: metroNIDAZOLE-NS PMX 500 MG in SALINE 1 100ML.BAG IVPB SCH ×2 (10:19→10:22)
[2016-09-06 11:59] VITALS: PULSE 71
--- NOTE | 2016-09-06 15:03 | P.DS ---
Providers Date of admission: 09/03/16 11:30 Expected date of discharge: 09/06/16 Attending physician: Nilsa Hollingsworth Primary care physician: [facility] Course: This is a pleasant 61-year-old woman patient of Dr. Springer and Dr. acuna, he presented to emergency room secondary to acute lower GI bleeding. He underwent a recent laparoscopic cholecystectomy by Dr. acuna on 08/12/2016, it was uncomplicated, patient had been discharged to home. 2 days ago he complained offdiarrhea which now has improved and has no bowel alteration with constipation, he also has anorexia for 2 days diminished fluid intake with no vomiting, patient has fever, chills no shortness of breath, he also had sweatss and left lwoer abominal pain Patient had prior colonoscopy procedures 2 years ago showing diverticular disease. He was admitted for a suspected diverticulitis with hematochezia ' 4:30: Patient is doing well, he had minimal left lower quadrant abdominal pain, he had significant nausea and vomiting, patient was seen by general surgery for which plans for colonoscopy to be made in the morning 09/05: Patient is status post EGD and colonoscopy with Dr. Burks on September 05 finding antral gastritis, small hiatal hernia, esophagitis, perirectal abscess with small amount of blood seen from this healing perirectal abscess area. Diet is to be advanced. Anticipate discharge home tomorrow. 09/06: Patient is tolerating regular diet. Patient will be discharged home today in stable condition. Discharge Diagnoses: 1. Acute lower GI due to perirectal abscess 2. Recent laparoscopic cholecystectomy 08/12/2016 without any complications 3. History of hypertension 4. COPD without any exacerbation 5. History of leukemia 7. History of Parkinson's 5. Prior history of CVA with dysarthria and left hemiparesis since 2013 Discharge plan: Return home Impression and plan of care have been directed as dictated by the signing physician. Helene Arguello nurse practitioner acting as scribe for signing physician. Patient Condition at Discharge: Good Plan - Discharge Summary New Discharge Prescriptions: Ciprofloxacin HCl [Cipro] 500 mg PO Q12HR #14 tablet metroNIDAZOLE [Flagyl] 500 mg PO Q8HR #21 tab Discharge Medication List Aspirin [Adult Low Dose Aspirin EC] 81 mg PO DAILY 07/02/15 [History] Lisinopril [Zestril] 20 mg PO W/SUPPER 07/02/15 [History] Baclofen [Lioresal] 20 mg PO QID PRN 08/10/16 [History] Budesonide-Formot 160-4.5 Mcg [Symbicort 160-4.5 Mcg Inhaler] 2 puff INHALATION RT-BID 08/10/16 [History] Primidone [Mysoline] 200 mg PO HS 08/10/16 [History] Albuterol Inhaler [Ventolin Hfa Inhaler] 1 - 2 puff INHALATION RT-Q6H PRN [History] rOPINIRole HCL [Requip] 2 mg PO TID 09/03/16 [History] traMADol HCL [Ultram] 50 mg PO BID PRN 09/03/16 [History] Ciprofloxacin HCl [Cipro] 500 mg PO Q12HR #14 tablet 09/06/16 [Rx] metroNIDAZOLE [Flagyl] 500 mg PO Q8HR #21 tab 09/06/16 [Rx] Follow up Appointment(s)/Referral(s): Earnest Escobar DO [Primary Care Provider] - 09/12/16 2:10 pm José Miguel Burks MD [STAFF PHYSICIAN] - 09/19/16 11:50 am Activity/Diet/Wound Care/Special Instructions: Wound care instructions: Soak rectal abscess in bathtub twice daily or apply warm compresses twice daily to help promote drainage. Discharge Disposition: HOME SELF-CARE
--- NOTE | 2016-09-06 15:16 | P.PN ---
Subjective Principal diagnosis: GI bleed Patient is a 61-year-old male admitted with acute lower GI bleeding status post EGD and colonoscopy on September 05 with findings of antral gastritis, small hiatal hernia, esophagitis, healing perirectal abscess with small amount of blood seen from abscess area. Patient is doing well. No further episodes of GI bleeding. Patient complains of mild nausea without vomiting. Denies abdominal pain. Afebrile. No evidence of leukocytosis. Objective - Vital Signs Vital signs: Vital Signs Temp 98.2 F 09/06/16 07:40 Pulse 71 09/06/16 08:00 Resp 09/06/16 08:00 BP 148/66 09/06/16 07:40 Pulse Ox 92 L 09/06/16 07:40 Intake & Output 09/05/16 09/06/16 09/06/16 18:59 06:59 18:59 Intake Total 1640 Output Total 125 Balance 1515 Weight 108.862 kg Intake: IV 900 IV Fluid Continuation 1, 500 000 ml As IV .[facility] Rx#:[id number] Oral 740 Output: Urine 125 Other: Voiding Method Toilet Toilet Toilet # Voids 2 1 - Exam GENERAL: Pt awake and alert, well-appearing, well-nourished, and in no acute distress. ABDOMEN: Soft, nontender, nondistended, normoactive bowel sounds. No guarding, no rebound. No masses or organomegaly appreciated. NEUROLOGICAL: Pt oriented x 3. - Labs CBC & Chem 7: 09/04/16 05:21 09/03/16 08:55 Assessment and Plan Plan: Impression: GI bleed status post EGD and colonoscopy with findings of antral gastritis, small hiatal hernia, esophagitis, and healing perirectal abscess with small amount of blood leading from abscess. Plan: Continue to monitor patient. Continue current medications. From surgical standpoint, patient is stable for discharge with follow-up in 2 weeks. Patient instructed to soak rectal abscess in bathtub twice daily or apply warm compresses to area twice daily. The above impression and plan have been discussed and directed by Dr. Burks. Lamine HEARD acting as scribe for Dr. Burks.
[2016-09-06] MEDS ORDERED: metroNIDAZOLE 500 MG TAB PO SCH (16:00)
[2016-09-06] MEDS ORDERED: LEVOFLOXACIN 500 MG TAB PO SCH (17:00)
== END 2016-09-06 14:32 | disposition home or self-care (01) ==
LOC: EC 08:54 → 3SUR 11:30 → OBSVTOIN 09-05 16:18 → INTOOBSV 09-05 16:18
PROVIDERS: ADMIT Family Medicine; ATTEND Family Medicine
DX: K61.1 Rectal abscess (principal); I10 Essential (primary) hypertension; J44.9 Chronic obstructive pulmonary disease, unspecified; Z85.6 Personal history of leukemia; G20 Parkinson's disease; I69.354 Hemiplegia and hemiparesis following cerebral infarction affecting left non-dominant side; I69.322 Dysarthria following cerebral infarction; Z79.82 Long term (current) use of aspirin; Z79.899 Other long term (current) drug therapy; Z79.51 Long term (current) use of inhaled steroids; M19.90 Unspecified osteoarthritis, unspecified site; F17.200 Nicotine dependence, unspecified, uncomplicated; K57.92 Diverticulitis of intestine, part unspecified, without perforation or abscess without bleeding; K29.70 Gastritis, unspecified, without bleeding; K20.9 Esophagitis, unspecified; K44.9 Diaphragmatic hernia without obstruction or gangrene; K29.50 Unspecified chronic gastritis without bleeding; Z79.891 Long term (current) use of opiate analgesic; Z79.2 Long term (current) use of antibiotics
CPT/HCPCS: 96376; 96361 ×2; 96365; 96366 ×3; 96367; 96375; 96360; 99285; 36415; 94640 ×4; 94760 ×2; 93005; 88305; 80053; 85025 ×2; 85610; 85730; 81003; 88342; 71020; 74000; 45378; 43239; G0378 ×5; J2405 ×2; J1956 ×3; J2704; C9113 ×4

== ENCOUNTER → 2017-07-03 | Outpatient (CLI) | payer OTHER ==
--- NOTE | 2017-07-03 23:06 | MR ---
EXAMINATION TYPE: MR angio head wo/neck wo/w con DATE OF EXAM: 07/03/2017 COMPARISON: NONE HISTORY: Cerebral infarction, unspecified TECHNIQUE: Time of flight images focusing on the [place] of [place] were performed without contrast.. 2-D and 3-D postprocessing imaging is performed. MR angiographic images were obtained of the intracerebral arterial circulation without contrast. MR a ngiographic images were obtained of the neck without contrast. FINDINGS: There is arterial flow in the anterior middle and posterior cerebral arteries. There is art erial flow in the vertebrobasilar artery system. I see no sign of aneurysm or neovascularity. There i s no evidence of intracranial arterial stenosis. There is no mass effect. There is no sign of spasm. Vertebral arteries are symmetric. There is arterial flow in the common internal and external carotid arteries bilaterally. Carotid gerber alverto appear widely patent. There is no evidence of aneurysm or neovascularity. There is no evidence o f dissection. The remainder of the exam is unremarkable. IMPRESSION: Normal MR angiography of the brain. Normal MR angiogram of the neck.
== END | disposition home or self-care (01) ==
LOC: RADMRIMAIN 11:39
PROVIDERS: ATTEND Psychiatry & Neurology Neurology
DX: I63.9 Cerebral infarction, unspecified (principal)
CPT/HCPCS: 70544; 70549; A9581

== ENCOUNTER 2019-12-27 08:14 | Emergency (ER) | payer MEDICARE, OTHER ==
[2019-12-27 08:24] VITALS: RESP 18
[2019-12-27] MEDS ORDERED: DIAZEPAM 5 MG/ML 2 ML INJ IVP STA (08:52)
[2019-12-27] MEDS ORDERED: KETOROLAC 15 MG/ML 1 ML VIAL IVP STA (08:52)
--- NOTE | 2019-12-27 08:57 | ED ---
General Adult HPI - General Chief complaint: Neck Pain/Injury Stated complaint: neck pain Time Seen by Provider: 12/27/19 08:15 Source: patient, RN notes reviewed, old records reviewed Mode of arrival: ambulatory Limitations: no limitations - History of Present Illness Initial comments: This is a 64-year-old male who presents emergency department stating that Monday he was riding his riding lawnmower when a branch caught in his headphones and his neck was jerked back. states he did not hit his head hard it was mostly the left side of his neck that was injured. Patient states at first it wasn't that bad. Patient states since then the pain in the trapezius muscle and in the side of his neck on the left is gotten considerably worse per patient states she's also had some tingling sensation to shoulder in the side of his neck. Patient denies any weakness patient denies any actual loss of sensation. Patient denies any other injury besides his neck pain and trapezius pain. Patient denies any headache patient denies any head injury. Patient states he had a stroke about 6 months ago and this is not similar.patient denies any chest pain difficulty breathing shortness of breath per patient denies any palpitations. Patient denies abdominal pain patient denies any recent fever chills or cough. - Related Data Previous Rx's Medication Instructions Recorded Cyclobenzaprine [Flexeril] 10 mg PO TID #20 tab 12/27/19 Ketorolac [Toradol] 10 mg PO Q6HR #15 tab 12/27/19 Allergies Allergy/AdvReac Type Severity Reaction Status Date / Time No Known Allergies Allergy Verified 12/27/19 09:57 Review of Systems ROS Statement: Those systems with pertinent positive or pertinent negative responses have been documented in the HPI. ROS Other: All systems not noted in ROS Statement are negative. 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", parkinsons, leukemia, arthritis in neck History of Any Multi-Drug Resistant Organisms: None Reported Past Surgical History: Cholecystectomy, Hernia Repair, Tonsillectomy Past Anesthesia/Blood Transfusion Reactions: No Reported Reaction Past Psychological History: No Psychological Hx Reported Smoking Status: Current every day smoker Past Alcohol Use History: None Reported Past Drug Use History: Marijuana - Past Family History Mother Family Medical History: Cancer Sister(s) Family Medical History: Cancer General Exam - General Exam Comments Initial Comments: GENERAL Patient is well-developed and well-nourished. Patient is in moderate distress. EYES Patient's pupils are equal and round. Extraocular motion is intact SKIN Unremarkable NEURO The patient is alert and oriented 3. Patient has no loss of sensation in his extremities and no weakness in any of his extremities. Patient's speech is clear and there is no slurring. Patient's cranial nerves II through XII are grossly intact. PYSCH Patient has normal interpersonal interactions. MUSCULOSKELETAL Patient has tenderness along the left trapezius muscle as well as the sternocleidomastoid muscle on the left. Limitations: no limitations Course Vital Signs 12/27/19 08:17 Temperature 97.8 F Pulse Rate 94 Respiratory 18 Rate Blood Pressure 117/91 O2 Sat by Pulse 95 Oximetry Medical Decision Making - Medical Decision Making CT of the brain and C-spine showed no acute abnormality. Patient received Valium and Toradol in the emergency department helped his pain but he was still having significant pain psychiatric the little Dilaudid and the patient was feeling considerably better and ready to go home. Disposition Clinical Impression: Cervical strain Disposition: HOME SELF-CARE Condition: Good Instructions (If sedation given, give patient instructions): Cervical Strain (ED) Prescriptions: Cyclobenzaprine [Flexeril] 10 mg PO TID #20 tab Ketorolac [Toradol] 10 mg PO Q6HR #15 tab Is patient prescribed a controlled substance at d/c from ED?: No Referrals: Earnest Escobar DO [Primary Care Provider] - 1-2 days Time of Disposition: 11:58
--- NOTE | 2019-12-27 09:58 | CT ---
EXAMINATION TYPE: CT brain tyra cerda con DATE OF EXAM: 12/27/2019 COMPARISON: 06/12/2017 HISTORY: Lt sided neck pain, struck in head by tree branch while mowing lawn CT DLP: 1588.[address] of the brain was performed. The ventricles, basal cisterns and sulci overlying the cerebral convexities demonstrate enlargement. There is no evidence for intracranial hemorrhage or sulcal effacement. There is decreased attenuatio n about the periventricular white matter and deep white matter of both cerebral hemispheres, compatib le with chronic small vessel ischemia. No mass effects are seen. If symptoms persist consider MRI. Osseous calvarium is intact. IMPRESSION: 1. Age related atrophic and chronic small vessel ischemic change without acute intracranial process seen at this time. CT Cervical Spine: Unenhanced CT of the cervical spine was performed with bone and soft tissue window settings submitted . Coronal and sagittal reconstruction is obtained. There is normal alignment and prevertebral soft tissues. No evidence for acute cervical fracture . Scattered degenerative disc disease and spondylosis. Biapical scarring. IMPRESSION: 1. No evidence for acute fracture or subluxation of the cervical spine.
[2019-12-27] MEDS ORDERED: HYDROmorphone 1 MG/ML 1 ML SYRINGE IVP STA (10:35)
[2019-12-27] MEDS ORDERED: methylPREDNISolone SOD SUCCI 125 MG/2 ML VIAL IV STA (10:35)
[2019-12-27 12:10] VITALS: BP 118/84; PULSE 87; TEMP 98
== END 2019-12-27 12:10 | disposition home or self-care (01) ==
LOC: EC 08:14
DX: S16.1XXA Strain of muscle, fascia and tendon at neck level, initial encounter (principal); F17.200 Nicotine dependence, unspecified, uncomplicated; Z86.73 Personal history of transient ischemic attack (TIA), and cerebral infarction without residual deficits; X58.XXXA Exposure to other specified factors, initial encounter; Y93.H2 Activity, gardening and landscaping
CPT/HCPCS: 72125; 70450; 99284; 96374; 96375 ×3; J2930; J3360; J1170; J1885

== ENCOUNTER 2020-02-05 07:08 | Inpatient (IN) | payer MEDICARE ==
[2020-02-05] MEDS ORDERED: IPRATROPIUM-ALBUTEROL 3 ML NEB INHALATION STA ×2 (07:11→08:43)
[2020-02-05] MEDS ORDERED: methylPREDNISolone SOD SUCCI 125 MG/2 ML VIAL IV STA (07:11)
[2020-02-05] MEDS ORDERED: SODIUM CHLORIDE 0.9% 500 ML 500 ML IV STA (07:11)
--- NOTE | 2020-02-05 07:20 | ED ---
General Adult HPI - General Stated complaint: Chest Pain Time Seen by Provider: 02/05/20 07:11 Source: patient, RN notes reviewed, old records reviewed - History of Present Illness Initial comments: 65-year-old male presents for evaluation of dyspnea and chest pain. Patient has history of COPD, no history of CAD or DVT PE. Patient states that approximately 2 AM he developed left-sided chest pain. This was worse with deep inspiration. It was associated with dyspnea which she states has somewhat improved. He denies fever. Denies significant increase in his baseline cough. He is a current smoker with history of COPD and states he always has a mild cough. He denies fever. This began approximate 5 hours prior to arrival. He was transported by EMS given aspirin, nitroglycerin, as well as albuterol and Atrovent. - Related Data Home Medications Medication Instructions Recorded Confirmed Cyclobenzaprine [Flexeril] 10 mg PO TID PRN 02/05/20 02/05/20 Allergies Allergy/AdvReac Type Severity Reaction Status Date / Time No Known Allergies Allergy Verified 02/05/20 08:34 Review of Systems ROS Statement: Those systems with pertinent positive or pertinent negative responses have been documented in the HPI. ROS Other: All systems not noted in ROS Statement are negative. 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", parkinsons, leukemia, arthritis in neck History of Any Multi-Drug Resistant Organisms: None Reported Past Surgical History: Cholecystectomy, Hernia Repair, Tonsillectomy Past Anesthesia/Blood Transfusion Reactions: No Reported Reaction Past Psychological History: No Psychological Hx Reported Smoking Status: Current every day smoker Past Alcohol Use History: None Reported Past Drug Use History: Marijuana - Past Family History Mother Family Medical History: Cancer Sister(s) Family Medical History: Cancer General Exam General appearance: alert, in distress (mild) Head exam: Present: atraumatic, normocephalic Eye exam: Present: normal appearance, PERRL, EOMI ENT exam: Present: normal exam Neck exam: Present: normal inspection. Absent: tenderness, meningismus Respiratory exam: Present: respiratory distress, wheezes, decreased breath sounds (Very diminished breath sounds on the left) Cardiovascular Exam: Present: normal rhythm, tachycardia GI/Abdominal exam: Present: soft. Absent: distended, tenderness Extremities exam: Present: normal inspection, normal capillary refill. Absent: pedal edema, calf tenderness Neurological exam: Present: alert, oriented X3, CN II-XII intact. Absent: motor sensory deficit Psychiatric exam: Present: normal affect, normal mood Skin exam: Present: warm, dry, intact. Absent: cyanosis, diaphoretic Course Vital Signs 02/05/20 02/05/20 02/05/20 07:09 07:31 07:41 Temperature 98.4 F Pulse Rate 128 H 110 H 112 H Respiratory 20 Rate Blood Pressure 140/87 O2 Sat by Pulse 92 L Oximetry 02/05/20 08:00 Temperature Pulse Rate 106 H Respiratory 18 Rate Blood Pressure 147/85 O2 Sat by Pulse 97 Oximetry EKG Findings - EKG Comments: EKG Findings:: EKG: Sinus tachycardia with PVC, rate of 124, DE interval 140, QRS duration 88, QTC 442 Medical Decision Making - Medical Decision Making 65-year-old male with dyspnea, chest pain. Patient has history COPD, reports a chronic cough, no significant change. No fever. Workup reveals EKG showed sinus tachycardia, chest x-ray negative for pneumothorax, concerning for left lower lobe infiltrate. This does correspond with the patient's pain. However given the pleuritic nature of his pain I did perform CT angiography in the [facility] department which was negative for pulmonary embolism, showed fibrotic change and emphysema throughout. Patient has mild leukocytosis, stable hemoglobin, normal electrolytes, mild lactic acid of 2.1. He's given IV fluids, IV antibiotics, steroids, breathing treatments in the emergency department. He does have significant improvement in both oxygenation and heart rate. He will be admitted for further evaluation and treatment of COPD, pneumonia, and further evaluation of chest pain. Case discussed with Dr. Hicks who will admit. Pulmonology has been placed on consult. - Lab Data Result diagrams: 02/05/20 07:28 02/05/20 07:14 Lab Results 02/05/20 02/05/20 02/05/20 Range/Units 07:14 07:14 07:28 WBC 12.6 H (3.8-10.6) k/uL RBC 5.54 (4.30-5.90) m/uL Hgb 15.9 (13.0-17.5) gm/dL Hct 48.9 (39.0-53.0) % MCV 88.3 (80.0-100.0) fL MCH 28.6 (25.0-35.0) pg MCHC 32.4 (31.0-37.0) g/dL RDW 12.8 (11.5-15.5) % Plt Count 266 (150-450) k/uL Neutrophils % 68 % Lymphocytes % 23 % Monocytes % 7 % Eosinophils % 1 % Basophils % 1 % Neutrophils # 8.5 H (1.3-7.7) k/uL Lymphocytes # 2.9 (1.0-4.8) k/uL Monocytes # 0.9 (0-1.0) k/uL Eosinophils # 0.1 (0-0.7) k/uL Basophils # 0.1 (0-0.2) k/uL PT (9.0-12.0) sec INR (<1.2) APTT (22.0-30.0) sec Sodium 134 L (137-145) mmol/L Potassium 4.1 (3.5-5.1) mmol/L Chloride 101 (98-107) mmol/L Carbon Dioxide 26 (22-30) mmol/L Anion Gap 7 mmol/L BUN 8 L (9-20) mg/dL Creatinine 0.68 (0.66-1.25) mg/dL Est GFR (CKD-EPI)AfAm >90 (>60 ml/min/1.73 sqM) Est GFR (CKD-EPI)NonAf >90 (>60 ml/min/1.73 sqM) Glucose 108 H (74-99) mg/dL Plasma Lactic Acid Sandro 2.1 H* (0.7-2.0) mmol/L Calcium 8.5 (8.4-10.2) mg/dL Magnesium 1.8 (1.6-2.3) mg/dL Total Bilirubin 1.2 (0.2-1.3) mg/dL AST 21 (17-59) U/L ALT 17 (4-49) U/L Alkaline Phosphatase 79 (38-126) U/L Troponin I (0.000-0.034) ng/mL Total Protein 6.9 (6.3-8.2) g/dL Albumin 3.9 (3.5-5.0) g/dL 02/05/20 02/05/20 Range/Units 07:28 07:28 WBC (3.8-10.6) k/uL RBC (4.30-5.90) m/uL Hgb (13.0-17.5) gm/dL Hct (39.0-53.0) % MCV (80.0-100.0) fL MCH (25.0-35.0) pg MCHC (31.0-37.0) g/dL RDW (11.5-15.5) % Plt Count (150-450) k/uL Neutrophils % % Lymphocytes % % Monocytes % % Eosinophils % % Basophils % % Neutrophils # (1.3-7.7) k/uL Lymphocytes # (1.0-4.8) k/uL Monocytes # (0-1.0) k/uL Eosinophils # (0-0.7) k/uL Basophils # (0-0.2) k/uL PT 10.1 (9.0-12.0) sec INR 1.0 (<1.2) APTT 23.6 (22.0-30.0) sec Sodium (137-145) mmol/L Potassium (3.5-5.1) mmol/L Chloride (98-107) mmol/L Carbon Dioxide (22-30) mmol/L Anion Gap mmol/L BUN (9-20) mg/dL Creatinine (0.66-1.25) mg/dL Est GFR (CKD-EPI)AfAm (>60 ml/min/1.73 sqM) Est GFR (CKD-EPI)NonAf (>60 ml/min/1.73 sqM) Glucose (74-99) mg/dL Plasma Lactic Acid Sandro (0.7-2.0) mmol/L Calcium (8.4-10.2) mg/dL Magnesium (1.6-2.3) mg/dL Total Bilirubin (0.2-1.3) mg/dL AST (17-59) U/L ALT (4-49) U/L Alkaline Phosphatase (38-126) U/L Troponin I <0.012 (0.000-0.034) ng/mL Total Protein (6.3-8.2) g/dL Albumin (3.5-5.0) g/dL Critical Care Time Critical Care Time: Yes Total Critical Care Time: 35 Disposition Clinical Impression: Chest pain, COPD (chronic obstructive pulmonary disease), Pneumonia Disposition: ADMITTED IP TO THIS [facility] Condition: Stable Is patient prescribed a controlled substance at d/c from ED?: No Referrals: Earnest Escobar DO [Primary Care Provider] - 1-2 days Decision to Admit Reason: Admit from EC Decision Date: 02/05/20 Decision Time: 08:47
--- NOTE | 2020-02-05 07:44 | XR ---
EXAMINATION TYPE: XR chest 1V portable DATE OF EXAM: 02/05/2020 COMPARISON: 06/12/2017 HISTORY: Difficulty breathing and chest pain TECHNIQUE: Single frontal view of the chest is obtained. FINDINGS: Heart size normal. Suspect underlying COPD with left basilar infiltrate. No pneumothorax. No overt failure. No sizable pleural effusion. There is mild prominence of the convexity of the right paratracheal and suprahilar region. IMPRESSION: 1. COPD with left lower lobe infiltrate. 2. There is a convexity to the right suprahilar border. The finding is seen dating back to 2013. CT s can at that time demonstrated no evidence of aneurysm. Right suprahilar adenopathy noted. Short-term follow-up CT of the chest could be obtained for further evaluation.
[2020-02-05 07:48] LABS: ALT 17 U/L (4-49); AST 21 U/L (17-59); African American GFR (CKD) >90 (>60 ml/min/1.73 sqM); Albumin 3.9 g/dL (3.5-5.0); Alkaline Phosphatase 79 U/L (38-126); Anion Gap 7 mmol/L; Blood Urea Nitrogen 8 mg/dL (9-20); Calcium 8.5 mg/dL (8.4-10.2); Carbon Dioxide 26 mmol/L (22-30); Chloride 101 mmol/L (98-107); Glucose 108 mg/dL (74-99); Magnesium 1.8 mg/dL (1.6-2.3); Non-African American GFR(CKD) >90 (>60 ml/min/1.73 sqM); Potassium 4.1 mmol/L (3.5-5.1); Sodium 134 mmol/L (137-145); Total Bilirubin 1.2 mg/dL (0.2-1.3); Total Protein 6.9 g/dL (6.3-8.2)
[2020-02-05 07:48] LABS: Partial Thromboplastin Time 23.6 sec (22.0-30.0); Prothrombin Time 10.1 sec (9.0-12.0)
[2020-02-05 07:57] LABS: Basophils # (A) 0.1 k/uL (0-0.2); Basophils % (A) 1 %; Eosinophils # (A) 0.1 k/uL (0-0.7); Eosinophils % (A) 1 %; HCT 48.9 % (39.0-53.0); HGB 15.9 gm/dL (13.0-17.5); Lymphocytes # (A) 2.9 k/uL (1.0-4.8); Lymphocytes % (A) 23 %; MCH 28.6 pg (25.0-35.0); MCHC 32.4 g/dL (31.0-37.0); MCV 88.3 fL (80.0-100.0); Monocytes # (A) 0.9 k/uL (0-1.0); Monocytes % (A) 7 %; Neutrophils # (A) 8.5 k/uL (1.3-7.7); Neutrophils % (A) 68 %; Platelet Count 266 k/uL (150-450); RBC 5.54 m/uL (4.30-5.90); RDW 12.8 % (11.5-15.5); WBC 12.6 k/uL (3.8-10.6)
[2020-02-05] MEDS ORDERED: AZITHROMYCIN 500 MG in SODIUM CHLORIDE 0.9% 250 ML IVPB STA (08:01)
[2020-02-05] MEDS ORDERED: cefTRIAXone IN SWFI 1,000 MG/10 ML SYRINGE IVP STA (08:01)
[2020-02-05] MEDS ORDERED: MORPHINE SULFATE 4 MG/ML SYRINGE IVP STA (08:03)
--- NOTE | 2020-02-05 08:17 | CT ---
EXAMINATION TYPE: CT angio chest DATE OF EXAM: 02/05/2020 COMPARISON: CT chest June 26, 2015. Chest x-ray earlier today. HISTORY: Chest pain CT DLP: 491.5 mGycm. Automated Exposure Control for Dose Reduction was Utilized. CONTRAST: CTA scan of the thorax is performed with IV Contrast, patient injected with 87 mL of Isovue 370, pulm onary embolism protocol. MIP Images are created on CT scanner and reviewed. FINDINGS: LUNGS: Moderate to advanced underlying emphysematous change is redemonstrated greatest in the upper l ungs and apices there is some peripheral reticulation and bleb formation in the lower lungs greatest in the posterior aspect right lower lobe. Areas of slight thickened nodular scarring are present. No suspicious greater than 5 mm distinct pulmonary nodules however. No pleural effusion or pneumothorax. There is some endobronchial occlusion suspected mucous plugging for reference right lower lobe perip heral bronchus image 107 posteriorly. No suspicious new focal consolidation. No pleural effusion or p neumothorax. MEDIASTINUM: There is satisfactory enhancement of the pulmonary artery and its branches, there is no CT evidence for pulmonary embolism. Satisfactory enhancement of the aorta without aneurysm or dissec tion. Prominent slightly enlarged right hilar lymph nodes. No suspicious greater than 1 cm mediastina l adenopathy. Coronary artery calcifications present. No cardiomegaly or pericardial effusion is se en. OTHER: No additional significant abnormality is seen. IMPRESSION: No CT evidence for acute pulmonary embolism. Moderate to advanced emphysematous change in the upper lungs with fairly moderate fibrotic changes in the lower lungs greatest right lower lobe. No suspicious acute pulmonary infiltrate.
[2020-02-05] MEDS: SODIUM CHLORIDE 0.9% 1,000 ML IV SCH ×2 (08:25→16:49)
[2020-02-05] MEDS ORDERED: ASPIRIN 325 MG TAB PO STA (08:43)
[2020-02-05] MEDS ORDERED: KETOROLAC 15 MG/ML 1 ML VIAL IVP STA (08:43)
[2020-02-05] MEDS ORDERED: IPRATROPIUM-ALBUTEROL 3 ML NEB INHALATION PRN (08:44)
[2020-02-05] MEDS: IPRATROPIUM-ALBUTEROL 3 ML NEB INHALATION SCH ×3 (10:48→20:19)
--- NOTE | 2020-02-05 11:58 | P.HPIM ---
History of Present Illness H&P Date: 02/05/20 This is a 65-year-old male who is a patient of of Dr. Springer. Past medical history significant for COPD, CVA, hypertension, Parkinson's, and CLL. Patient does smoke 1 pack per day for approximately the last 40 years and marijuana daily for Parkinson's. Patient woke up approximately at 2 AM with left-sided chest pain and difficulty breathing. Denies any nausea diaphoresis but did report having tingling in the left arm and presented to the emergency room by EMS. EKG reveals sinus tachycardia with occasional PVC. CTA of the chest was performed and showed no evidence for acute PE, moderate to advanced emphysematous changes and upper lungs with fairly moderate fibrotic changes and lower lungs. First troponin was negative, sodium was 134, lactic acid 2.1, WBCs 12.6. Patient was admitted to cardiac observation, fluids are in place along with consults to cardiology and pulmonary. Plan for echo and likely stress test. Patient was covered with azithromycin and Rocephin IV. Awaiting home medication list. Review of Systems CONSTITUTIONAL: Well-developed no acute respiratory distress. EYES: No icterus sclerae, no conjunctivitis. EARS, NOSE, MOUTH, THROAT, and FACE: No sore throat, lymphadenopathy, carotid bruits or deformity. RESPIRATORY: Positive shortness of breath mild cough wheezes. CARDIOVASCULAR: No CP, Palpitation, PND, Orthopnea, or angina. GASTROINTESTINAL: No Abd pain, Nausea or vomiting, no Diarrhea or constipation, No GI Bleed, no distention or masses. GENITOURINARY: Negative for Hematuria or UTI, no kidney stones. INTEGUMENT/BREAST: Negative for any muscular injury with mild osteoarthritis.. HEMATOLOGIC/LYMPHATIC: Negative for bleed or purpura. MUSCULOSKELTAL: Negative for Myalgia or arthralgia. NEURLOGICAL: No LOC, Sz or syncope, blurred vision dizziness or abnormality.. BEHAVIORAL/PSYCH: Negative. ENDOCRINE: Negative. 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", parkinsons, leukemia, arthritis in neck History of Any Multi-Drug Resistant Organisms: None Reported Past Surgical History: Cholecystectomy, Hernia Repair, Tonsillectomy Past Anesthesia/Blood Transfusion Reactions: No Reported Reaction Past Psychological History: No Psychological Hx Reported Smoking Status: Current every day smoker (1PPD) Past Alcohol Use History: None Reported Additional Past Alcohol Use History / Comment(s): smokes 1 PPD, since age 21 Past Drug Use History: Marijuana (daily ) Additional Drug Use History / Comment(s): daily - Past Family History Mother Family Medical History: Cancer (lung CA) Sister(s) Family Medical History: Cancer (esophaegal ) Father History Unknown: Yes Medications and Allergies Home Medications Medication Instructions Recorded Confirmed Type Cyclobenzaprine [Flexeril] 10 mg PO TID PRN 02/05/20 02/05/20 History Allergies Allergy/AdvReac Type Severity Reaction Status Date / Time No Known Allergies Allergy Verified 02/05/20 08:34 Physical Exam Vitals: Vital Signs Temp Pulse Pulse Resp BP BP Pulse Ox 02/05/20 09:43 98.2 F 115 H 20 128/75 94 L 02/05/20 09:19 112 H 02/05/20 09:09 115 H 02/05/20 09:00 113 H 18 144/88 96 02/05/20 08:00 106 H 18 147/85 97 02/05/20 07:41 112 H 02/05/20 07:31 110 H 02/05/20 07:09 98.4 F 128 H 20 140/87 92 L Intake and Output 02/04/20 02/05/20 02/05/20 22:59 06:59 14:59 Other: Weight 107.501 kg General: Patient awake alert and oriented x 3. No acute distress. HEENT: Sclerae are clear. Pupils equal, round and reactive to light bilaterally. No cervical adenopathy. No pharyngeal erythema or exudate. No thyromegaly. Lymphatic: No anterior cervical adenopathy. Chest: Heart regular in rate and rhythm positive S1 and S2. No S3. No S4. No clicks, rubs or murmurs. Lungs: Lung sounds diminished to auscultation with scattered wheezing. Respirations even and nonlabored. Abdomen/GI: Bowel sounds present in all 4 quadrants. Bowel sounds normoactive. No abdominal tenderness. No mass. No hepatomegaly or splenomegaly. No bruits. : Musculoskeletal/ Extremities: No tenderness on muscular exam. No ecchymosis. Vascular: Radial pulses equal. 2/4. Skin: No rash. Neurologic: Awake, alert and oriented times 3. No lateralizing deficits noted on gross inspection. Results CBC & Chem 7: 02/05/20 07:28 02/05/20 07:14 Labs: Abnormal Lab Results - Last 24 Hours (Table) 02/05/20 02/05/20 02/05/20 Range/Units 07:14 07:14 07:28 WBC 12.6 H (3.8-10.6) k/uL Neutrophils # 8.5 H (1.3-7.7) k/uL Sodium 134 L (137-145) mmol/L BUN 8 L (9-20) mg/dL Glucose 108 H (74-99) mg/dL Plasma Lactic Acid Sandro 2.1 H* (0.7-2.0) mmol/L Thrombosis Risk Factor Assmnt - DVT/VTE Prophylaxis DVT/VTE Prophylaxis: Pharmacologic Prophylaxis ordered, Low risk, early ambulation encouraged - Choose All That Apply Any of the Below Risk Factors Present?: Yes Each Factor Represents 1 point: Abnormal pulmonary function (COPD) Other Risk Factors: Yes Each Risk Factor Represents 2 Points: Age 61-74 years, Malignancy Other congenital or acquired thrombophilia - If yes, enter type in comment: No Thrombosis Risk Factor Assessment Total Risk Factor Score: 5 Thrombosis Risk Factor Assessment Level: High Risk Assessment and Plan Assessment: 1. Left-sided Chest pain: EKG revealed sinus tachycardia with PVC, no acute changes. First troponin was negative. Nitropaste ordered. Consult for cardio in place and echo ordered. 2. Dyspnea. Associated with chest pain, consult for pulmonary 3. Lactic acidosis. Blood culture was done, IV fluids and place. 4. Hyponatremia: Sodium 134, normal saline infusing we'll repeat labs in the morning 5. Exacerbation of COPD. Received IV azithromycin and Rocephin. Pulmicort and DuoNeb's in place along with pulmonary consult. 6. History of CVA. Follows with Dr. Montiel as outpatient 7. Hypertension. Stable, no current medications. 8. History of Parkinson's. Patient reports use of marijuana to control tremors. 9. Chronic lymphoid leukemia. Follows with primary care and blood work 2 times per year 10. GI prophylaxis. On PPI 11. DVT prophylaxis. On heparin Patient will be admitted to the hospital for minimum of 2 night stay. Discharge plan: Home with self-care Impression and plan of care have been directed as dictated by the signing physician. Trena Pemberton nurse practitioner acting as scribe for signing physician.
[2020-02-05] MEDS: methylPREDNISolone SOD SUCCI 125 MG/2 ML VIAL IV SCH ×2 (12:54→17:40)
[2020-02-05] MEDS: NITROGLYCERIN OINT 1 INCH/GM PACKET TOPICAL SCH ×2 (12:55→17:40)
--- NOTE | 2020-02-05 12:56 | P.CRDCN ---
History of Present Illness History of present illness: HISTORY OF PRESENTING ILLNESS This is a pleasant 65-year-old male past medical history significant for Parkinson's disease, CVA 2, hypertension, COPD and chronic nicotine dependence. He denies prior history of coronary artery disease and does not follow in the office with a section gang worker. We have been asked to see in consultation for chest pain. He states he woke up last night at 2:30 in the morning with a burning sensation in the midsternal region as well as a squeezing sensation that was intermittent. The burning was constant all night up until 6 AM and the squeezing would come and go. The squeezing at times was related to breathing. He also had associated significant shortness of breath. He states he has COPD and chronic shortness of breath over his breathing was much worse today than it has been in the past. He denies radiation to the arm, back, neck or jaw. He denies associated palpitations, dizziness, nausea, vomiting or diaphoresis. His respirations are increased at the time of my exam and he has purse lipped breathing. Pulmonary care team is also at the bedside. DIAGNOSTICS EKG reveals sinus tachycardia heart rate 124 with a single PVC no acute ischemic changes noted. Chest xray reveals COPD with a left lower lobe infiltrate. CTA of the chest is negative for pulmonary embolism with normal-appearing aorta with severe emphysematous changes. Laboratory reviewed, WBC 12.6, hemoglobin 15.9, platelets 266, sodium 134, potassium 4.1, creatinine 0.68, lactic acid on admission 2. 1 repeat after hydration 1.8, magnesium 1.8, cardiac enzymes negative 1, NT proBNP 151. He takes no daily cardiac medications. He states at times he takes a 81 mg aspirin. REVIEW OF SYSTEMS At the time of my exam: CONSTITUTIONAL: Denies fever or chills. CARDIOVASCULAR: Denies chest pain, shortness of breath, orthopnea, PND or palpitations. RESPIRATORY: Denies cough. GASTROINTESTINAL: Denies abdominal pain, diarrhea, constipation, nausea or vomiting. MUSCULOSKELETAL: Denies myalgias. NEUROLOGIC: Denies numbness, tingling or weakness. ENDOCRINE: Denies fatigue, weight change, polydipsia or polyurina. GENITOURINARY: Denies burning, hematuria or urgency with micturation. HEMATOLOGIC: Denies history of anemia or bleeding. PHYSICAL EXAMINATION Blood pressure 128/75 heart rate 115 afebrile and maintaining oxygen saturation on nasal cannula. CONSTITUTIONAL: No apparent distress. Upper extremity tremor noted. HEENT: Head is normocephalic. Pupils are equal, round. Sclerae anicteric. Mucous membranes of the mouth are moist. No JVD. No carotid bruit. CHEST EXAMINATION: Diminished bilaterally with scattered rhonchi, no wheezes or rales. No chest wall tenderness is noted on palpation or with deep breathing. HEART EXAMINATION: Regular rate and rhythm. S1, S2 heard. No murmurs, gallops or rub. ABDOMEN: Soft, nontender. Positive bowel sounds. EXTREMITIES: 2+ peripheral pulses, no lower extremity edema and no calf tenderness. NEUROLOGIC EXAMINATION: Patient is awake, alert and oriented x3. ASSESSMENT Chest pain, atypical for angina. Leukocytosis Lactic acidosis COPD and left lobe infiltrate, possible pneumonia History of CVA 2 in the past Chronic nicotine dependence PLAN Continue to obtain serial cardiac enzymes to rule out an acute event. Obtain 2-D echocardiogram and Doppler study to assess cardiac structure and function. Chest discomfort appears to be related to underlying pulmonary etiology. Recommend aspirin 81 mg daily. Check a lipid profile and TSH. Thank you kindly for this consultation. Nurse Practitioner note has been reviewed, I agree with a documented findings and plan of care. Patient was seen and examined. 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", parkinsons, leukemia, arthritis in neck History of Any Multi-Drug Resistant Organisms: None Reported Past Surgical History: Cholecystectomy, Hernia Repair, Tonsillectomy Past Anesthesia/Blood Transfusion Reactions: No Reported Reaction Past Psychological History: No Psychological Hx Reported Smoking Status: Current every day smoker (1PPD) Past Alcohol Use History: None Reported Additional Past Alcohol Use History / Comment(s): smokes 1 PPD, since age 21 Past Drug Use History: Marijuana (daily ) Additional Drug Use History / Comment(s): daily - Past Family History Mother Family Medical History: Cancer (lung CA) Sister(s) Family Medical History: Cancer (esophaegal ) Father History Unknown: Yes Medications and Allergies Home Medications Medication Instructions Recorded Confirmed Type Cyclobenzaprine [Flexeril] 10 mg PO TID PRN 02/05/20 02/05/20 History Allergies Allergy/AdvReac Type Severity Reaction Status Date / Time No Known Allergies Allergy Verified 02/05/20 08:34 Physical Exam Vitals: Vital Signs Temp Pulse Pulse Resp BP BP Pulse Ox 02/05/20 09:43 98.2 F 115 H 20 128/75 94 L 02/05/20 09:19 112 H 02/05/20 09:09 115 H 02/05/20 09:00 113 H 18 144/88 96 02/05/20 08:00 106 H 18 147/85 97 02/05/20 07:41 112 H 02/05/20 07:31 110 H 02/05/20 07:09 98.4 F 128 H 20 140/87 92 L Intake and Output 02/04/20 02/05/20 02/05/20 22:59 06:59 14:59 Other: Weight 107.501 kg Results 02/05/20 07:28 02/05/20 07:14 Cardiac Enzymes 02/05/20 02/05/20 Range/Units 07:14 07:28 AST 21 (17-59) U/L Troponin I <0.012 (0.000-0.034) ng/mL Coagulation 02/05/20 Range/Units 07:28 PT 10.1 (9.0-12.0) sec APTT 23.6 (22.0-30.0) sec CBC 02/05/20 Range/Units 07:28 WBC 12.6 H (3.8-10.6) k/uL RBC 5.54 (4.30-5.90) m/uL Hgb 15.9 (13.0-17.5) gm/dL Hct 48.9 (39.0-53.0) % Plt Count 266 (150-450) k/uL Comprehensive Metabolic Panel 02/05/20 Range/Units 07:14 Sodium 134 L (137-145) mmol/L Potassium 4.1 (3.5-5.1) mmol/L Chloride 101 (98-107) mmol/L Carbon Dioxide 26 (22-30) mmol/L BUN 8 L (9-20) mg/dL Creatinine 0.68 (0.66-1.25) mg/dL Glucose 108 H (74-99) mg/dL Calcium 8.5 (8.4-10.2) mg/dL AST 21 (17-59) U/L ALT 17 (4-49) U/L Alkaline Phosphatase 79 (38-126) U/L Total Protein 6.9 (6.3-8.2) g/dL Albumin 3.9 (3.5-5.0) g/dL Current Medications Generic Name Dose Route Start Last Admin Trade Name Freq PRN Reason Stop Dose Admin Albuterol/Ipratropium 3 ml 02/05/20 08:44 Ipratropium-Albuterol 3 Ml Neb INHALATION RT-Q4H PRN Shortness Of Breath Or Wheezing Albuterol/Ipratropium 3 ml 02/05/20 12:00 02/05/20 10:48 Ipratropium-Albuterol 3 Ml Neb INHALATION Not Given RT-QID MISSY Aspirin 81 mg 02/06/20 09:00 Aspirin 81 Mg PO DAILY MISSY Budesonide 0.5 mg 02/05/20 20:00 Budesonide 0.5 Mg/2 Ml Nebu INHALATION RT-BID MISSY Heparin Sodium (Porcine) 5,000 unit 02/05/20 16:00 Heparin Sodium,Porcine 5,000 Unit/Ml 1 Ml Vial SQ Q8HR [facility] Sodium Chloride 1,000 mls @ 130 mls/hr 02/05/20 08:15 02/05/20 08:25 Saline 0.9% IV 130 mls/hr .[id number] MISSY Administration Methylprednisolone Sodium Succinate 60 mg 02/05/20 12:00 Methylprednisolone Sod Succi 125 Mg/2 Ml Vial IV Q6HR MISSY Nitroglycerin 0.5 inch 02/05/20 12:00 Nitroglycerin Oint 1 Inch/Gm Packet TOPICAL Q6HR [facility] Pantoprazole Sodium 40 mg 02/06/20 07:30 Pantoprazole 40 Mg Tablet PO AC-BRKFST [facility] Intake and Output 02/04/20 02/05/20 02/05/20 22:59 06:59 14:59 Other: Weight 107.501 kg Patient Weight 02/06/20 06:59 Weight 107.501 kg 02/05/20 07:28 02/05/20 07:14
[2020-02-05] MEDS ORDERED: HEPARIN SODIUM,PORCINE 5,000 UNIT/ML 1 ML VIAL SQ SCH (16:00)
[2020-02-05] MEDS ORDERED: HEPARIN SODIUM,PORCINE 5,000 UNIT/ML 1 ML VIAL IV PRN (16:01)
[2020-02-05] MEDS ORDERED: HEPARIN SODIUM,PORCINE 5,000 UNIT/ML 1 ML VIAL IV ONE (16:01)
[2020-02-05] MEDS ORDERED: HEPARIN SOD,PORK IN 0.45% NACL 25,000 UNIT in 0.45% NACL 1 250ML.BAG IV SCH (16:15)
[2020-02-05] MEDS: Acetaminophen-Codeine 300-30mg TAB PO PRN (16:46)
[2020-02-05] MEDS: METOPROLOL SUCCINATE (ER) 25 MG TAB.ER.24H PO SCH (16:47)
[2020-02-05 16:55] LABS: Basophils % (A) 0 %; Eosinophils % (A) 0 %; HCT 47.5 % (39.0-53.0); HGB 15.3 gm/dL (13.0-17.5); Lymphocytes # (A) 1.1 k/uL (1.0-4.8); Lymphocytes % (A) 9 %; MCH 28.7 pg (25.0-35.0); MCHC 32.2 g/dL (31.0-37.0); MCV 88.9 fL (80.0-100.0); Mean Platelet Volume 7.8; Monocytes # (A) 0.3 k/uL (0-1.0); Monocytes % (A) 2 %; Neutrophils # (A) 10.6 k/uL (1.3-7.7); Neutrophils % (A) 88 %; Platelet Count 277 k/uL (150-450); RBC 5.34 m/uL (4.30-5.90); RDW 12.7 % (11.5-15.5); WBC 12.1 k/uL (3.8-10.6)
[2020-02-05 17:03] LABS: Partial Thromboplastin Time 25.8 sec (22.0-30.0); Prothrombin Time 10.2 sec (9.0-12.0)
--- NOTE | 2020-02-05 17:05 | ECHOF ---
Referral Reason:LVF MEASUREMENTS -------- HEIGHT: 185.4 cm WEIGHT: 107.5 kg BP: 144/88 RVIDd: 3.8 cm (< 3.3) IVSd: 1.2 cm (0.6 - 1.1) LVIDd: 4.7 cm (3.9 - 5.3) LVPWd: 1.2 cm (0.6 - 1.1) IVSs: 1.6 cm LVIDs: 3.5 cm LVPWs: 1.8 cm LA Diam: 3.7 cm (2.7 - 3.8) LAESV Index (A-L): 24.97 ml/m Ao Diam: 3.2 cm (2.0 - 3.7) AV Cusp: 2.2 cm (1.5 - 2.6) MV EXCURSION: 16.721 mm (> 18.000) MV EF SLOPE: 133 mm/s (70 - 150) EPSS: 1.5 cm MV E Raudel: 0.83 m/s MV DecT: 119 ms MV A Raudel: 1.10 m/s MV E/A Ratio: 0.75 RAP: 5.00 mmHg RVSP: 29.86 mmHg FINDINGS -------- Resting tachycardia (HR>100bpm). This was a technically adequate study. The left ventricular size is normal. There is borderline concentric left ventricular hypertrophy. Overall left ventricular systolic function is normal with, an EF between 60 - 65 %. The right ventricle is mild to moderately enlarged. The left atrial size is normal. The right atrium is normal in size. The aortic valve is trileaflet and appears structurally normal. There is trace to mild mitral regurgitation. Mild tricuspid regurgitation present. Right ventricular systolic pressure is normal at < 35 mmHg. The pulmonic valve was not well visualized. The aortic root size is normal. IVC Not well visulized. There is no pericardial effusion. CONCLUSIONS -------- 1. The left ventricular size is normal. 2. There is borderline concentric left ventricular hypertrophy. 3. Overall left ventricular systolic function is normal with, an EF between 60 - 65 %. 4. The right ventricle is mild to moderately enlarged. 5. The aortic valve is trileaflet and appears structurally normal. 6. There is trace to mild mitral regurgitation. 7. Mild tricuspid regurgitation present. 8. There is no pericardial effusion. COOK STARCH: MICHAEL Mejía
[2020-02-05] MEDS: NICOTINE 21MG/24HR PATCH TRANSDERM SCH (17:40)
[2020-02-05] MEDS ORDERED: BUDESONIDE 0.5 MG/2 ML NEBU INHALATION SCH ×2 (20:00)
[2020-02-05] MEDS: AMOXIC-POT CLAV 875-125MG 1 EACH TAB PO SCH (20:13)
--- NOTE | 2020-02-05 20:18 | CONS ---
CONSULTATION PULMONARY/CRITICAL CARE CONSULTATION: DATE OF SERVICE: 02/05/2020 REASON FOR CONSULTATION: Shortness of breath. This is a 65-year-old male who presented to the emergency room on February 04 at 0700 complaining of shortness of breath and chest pain. The patient does have a history of underlying COPD. The patient states that at approximately 2 a.m. on the day of admission he developed left-sided chest pain and shortness of breath. The pain was sharp and worse with deep inspiration. When he was eventually seen in the emergency room, the patient was somewhat improved. He denies any fever or chills. There was no significant cough or phlegm production. He has smoked heavily for many years, probably 50 or so. He continues to smoke about a pack a day, sometimes more. He was told in the past that he had COPD by one of his primary care physicians. He has never seen a stock lifter in the past. I believe his primary care provider is Dr. Escobar. The patient states that he is feeling a bit better now. He has been recently seen by Cardiology, and we are seeing him currently. He does apparently have an inhaler at home. En route, EMS provided him with aspirin, nitroglycerin and a breathing treatment. HOME MEDICATIONS: Home medications include a rescue inhaler and Flexeril. ALLERGIES: DENIED. MEDICAL HISTORY: Medical history includes COPD, CVA, hypertension, angina and leukemia. The patient suffers from left-sided weakness secondary to CVA. The CVA occurred in 2013. In addition, the patient has a history of leukemia, Parkinson's disease and cervical arthritis. SURGICAL HISTORY: Surgical history includes tonsillectomy, hernia repair and cholecystectomy. SOCIAL HISTORY: Positive for current ongoing tobacco use. The patient denies any alcohol or illicit drug use other than marijuana. FAMILY HISTORY: Positive for both mother and a sister with cancer. REVIEW OF SYSTEMS: CONSTITUTIONAL: Negative. NEUROLOGIC: Negative. HEENT: Negative. CARDIOVASCULAR: Chest pain, somewhat pleuritic in nature and sharp. PULMONARY: Shortness of breath, worse on deep inspiration. GI: Negative. : Negative. RHEUMATOLOGIC: Negative. IMMUNOLOGIC: Negative. ENDOCRINOLOGIC: Negative. DERMATOLOGIC: Negative. PHYSICAL EXAMINATION: VITAL SIGNS: Current vital signs are reviewed. Temperature 98.2, heart rate 115, respiratory rate 20, blood pressure 128/75, mean 92, two-liter saturation 94%. GENERAL APPEARANCE: The patient is sitting at the bedside. He seems in no acute distress. HEENT: Examination is grossly unremarkable. NECK: Supple. Full range of motion. No adenopathy. Neck veins are flat. CARDIOVASCULAR: Examination reveals regular rhythm and rate. Heart rate about 100 beats per minute. S1, S2 normal. There is no murmur. LUNGS: Lungs reveal diffuse inspiratory and expiratory rhonchi and wheezes. Breath sounds are diminished. There is prolongation. No crackles. ABDOMEN: Soft. EXTREMITIES: Intact. No cyanosis, clubbing or edema. SKIN: Without rash. NEUROLOGIC: Neurologic examination is nonfocal. LABS/IMAGING: Reviewed. White count 12.6, hemoglobin 15.9, hematocrit 48.9, platelet count 366,000. PT/INR and PTT all normal. Sodium 134, potassium 4.1, chloride 101, CO2 26. Anion gap is 7. BUN and creatinine were 8 and 0.68. The patient's N-terminal proBNP was 151. The troponins were less than 0.012 x3. Cholesterol was 214, LDL cholesterol 58, HDL cholesterol 37. TSH normal. Chest x-ray shows changes of COPD. There also may be some volume loss and possible infiltrate in the left lower lobe. CT angiogram showed no evidence of PE. It showed emphysematous changes and some fibrotic changes in the lower lung zones. CURRENT MEDICATIONS: Current medications are reviewed. The patient is currently on Pulmicort, heparin, aspirin, albuterol and Atrovent, Solu-Medrol, nitroglycerin ointment and Protonix. ASSESSMENT: 1. Shortness of breath, likely related to underlying chronic obstructive pulmonary disease exacerbation more than cardiac disease. 2. History of ongoing tobacco use and nicotine addiction. 3. Atelectasis versus infiltrate in the lower lobes, more likely atelectasis. 4. History of angina pectoris. 5. History of leukemia. 6. History of Parkinson's disease. 7. Prior history of cerebrovascular accident. 8. Cervical arthritis. PLAN: The patient's medications should be maximized. He should be on DuoNeb q.i.d. and p.r.n. He will be placed on Solu-Medrol 60 mg q.6 as well as Pulmicort 1 mg mixed with Perforomist 20 mcg twice a day. He is encouraged to stop smoking. Additional recommendations and suggestions are forthcoming. When he is feeling better, he needs outpatient pulmonary function tests and followup in the pulmonary clinic. MMODL / IJN: [id number] /
[2020-02-05] MEDS: BUDESONIDE 1 MG/2 ML NEBU INHALATION SCH (20:19)
[2020-02-05] MEDS: FORMOTEROL FUMARATE 20 MCG/2 ML NEBU INHALATION SCH (20:19)
[2020-02-06] MEDS: methylPREDNISolone SOD SUCCI 125 MG/2 ML VIAL IV SCH ×4 (00:19→17:58)
[2020-02-06] MEDS: SODIUM CHLORIDE 0.9% 1,000 ML IV SCH ×3 (00:20→15:05)
[2020-02-06] MEDS: NITROGLYCERIN OINT 1 INCH/GM PACKET TOPICAL SCH ×3 (00:40→06:22)
[2020-02-06] MEDS ORDERED: DILTIAZEM DRIP BOLUS FROM BAG 1 MG SOLN IV ONE (01:52)
[2020-02-06] MEDS ORDERED: DILTIAZEM 125 MG in SODIUM CHLORIDE 0.9% 100 ML IV SCH (02:00)
[2020-02-06] MEDS: Acetaminophen-Codeine 300-30mg TAB PO PRN ×3 (04:53→20:46)
[2020-02-06 06:14] LABS: Basophils % (A) 0 %; Eosinophils # (A) 0.1 k/uL (0-0.7); Eosinophils % (A) 0 %; HGB 14.5 gm/dL (13.0-17.5); Lymphocytes # (A) 1.8 k/uL (1.0-4.8); Lymphocytes % (A) 9 %; MCH 27.9 pg (25.0-35.0); MCHC 31.6 g/dL (31.0-37.0); MCV 88.2 fL (80.0-100.0); Monocytes # (A) 0.5 k/uL (0-1.0); Monocytes % (A) 3 %; Neutrophils # (A) 17.4 k/uL (1.3-7.7); Neutrophils % (A) 88 %; Platelet Count 294 k/uL (150-450); RBC 5.21 m/uL (4.30-5.90); WBC 19.9 k/uL (3.8-10.6)
[2020-02-06 06:23] LABS: Glucose,Whole Blood 153 mg/dL (75-99)
[2020-02-06 06:35] LABS: ALT 14 U/L (4-49); AST 15 U/L (17-59); African American GFR (CKD) >90 (>60 ml/min/1.73 sqM); Albumin 3.4 g/dL (3.5-5.0); Alkaline Phosphatase 75 U/L (38-126); Anion Gap 5 mmol/L; Blood Urea Nitrogen 11 mg/dL (9-20); Calcium 8.8 mg/dL (8.4-10.2); Carbon Dioxide 24 mmol/L (22-30); Chloride 107 mmol/L (98-107); Glucose 143 mg/dL (74-99); Non-African American GFR(CKD) >90 (>60 ml/min/1.73 sqM); Potassium 4.2 mmol/L (3.5-5.1); Sodium 136 mmol/L (137-145); Total Bilirubin 0.6 mg/dL (0.2-1.3); Total Protein 6.1 g/dL (6.3-8.2)
[2020-02-06] MEDS: BUDESONIDE 1 MG/2 ML NEBU INHALATION SCH ×2 (06:53→20:32)
[2020-02-06] MEDS: IPRATROPIUM-ALBUTEROL 3 ML NEB INHALATION SCH ×4 (06:53→20:32)
[2020-02-06] MEDS: FORMOTEROL FUMARATE 20 MCG/2 ML NEBU INHALATION SCH ×2 (06:53→20:32)
[2020-02-06] MEDS: NICOTINE 21MG/24HR PATCH TRANSDERM SCH (10:08)
[2020-02-06] MEDS: PANTOPRAZOLE 40 MG TABLET PO SCH (10:08)
[2020-02-06] MEDS: ASPIRIN 81 MG PO SCH (10:08)
[2020-02-06] MEDS: METOPROLOL SUCCINATE (ER) 25 MG TAB.ER.24H PO SCH (10:08)
[2020-02-06] MEDS: DILTIAZEM CD 180 MG CAP.ER.24H PO SCH (10:08)
[2020-02-06] MEDS: AMOXIC-POT CLAV 875-125MG 1 EACH TAB PO SCH ×2 (10:09→20:34)
[2020-02-06] MEDS: HEPARIN SODIUM,PORCINE 5,000 UNIT/ML 1 ML VIAL SQ SCH ×2 (10:09→20:34)
--- NOTE | 2020-02-06 10:25 | P.PN ---
Subjective Progress Note Date: 02/06/20 This is a 65-year-old male who is a patient of of Dr. Springer. Past medical history significant for COPD, CVA, hypertension, Parkinson's, and CLL. Patient does smoke 1 pack per day for approximately the last 40 years and marijuana daily for Parkinson's. Patient woke up approximately at 2 AM with left-sided chest pain and difficulty breathing. Denies any nausea diaphoresis but did report having tingling in the left arm and presented to the emergency room by EMS. EKG reveals sinus tachycardia with occasional PVC. CTA of the chest was performed and showed no evidence for acute PE, moderate to advanced emphysematous changes and upper lungs with fairly moderate fibrotic changes and lower lungs. First troponin was negative, sodium was 134, lactic acid 2.1, WBCs 12.6. Patient was admitted to cardiac observation, fluids are in place along with consults to cardiology and pulmonary. Plan for echo and likely stress test. Patient was covered with azithromycin and Rocephin IV. Awaiting home medication list. 02/05: Patient evaluated sitting on edge of bed this morning. Still complains of mild shortness of breath with pain on inspiration. Echo revealed EF 60-65%, with no pericardial effusion. White blood cells 19,000 today, patient was switched to Augmentin yesterday. Nurse reported patient had an episode of sinus tachycardia around 150 bpm that sustained for 20 minutes, cardiology was called and patient was placed on a Cardizem drip. Patient was sinus tach in the mon itor this morning in the low 100s. Blood pressure 136/81, pulse ox 92% on 2 L nasal cannula. Pulmonary and cardiology remain on the case. Review of Systems CONSTITUTIONAL: Well-developed no acute respiratory distress. EYES: No icterus sclerae, no conjunctivitis. EARS, NOSE, MOUTH, THROAT, and FACE: No sore throat, lymphadenopathy, carotid bruits or deformity. RESPIRATORY: Positive shortness of breath mild cough wheezes. CARDIOVASCULAR: No CP, Palpitation, PND, Orthopnea, or angina. Pain with inspiration GASTROINTESTINAL: No Abd pain, Nausea or vomiting, no Diarrhea or constipation, No GI Bleed, no distention or masses. GENITOURINARY: Negative for Hematuria or UTI, no kidney stones. INTEGUMENT/BREAST: Negative for any muscular injury with mild osteoarthritis.. HEMATOLOGIC/LYMPHATIC: Negative for bleed or purpura. MUSCULOSKELTAL: Negative for Myalgia or arthralgia. NEURLOGICAL: No LOC, Sz or syncope, blurred vision dizziness or abnormality.. BEHAVIORAL/PSYCH: Negative. ENDOCRINE: Negative. Physical exam General: Patient awake alert and oriented x 3. No acute distress. HEENT: Sclerae are clear. Pupils equal, round and reactive to light bilaterally. No cervical adenopathy. No pharyngeal erythema or exudate. No thyromegaly. Lymphatic: No anterior cervical adenopathy. Chest: Heart rate with tachycardia and regular rhythm positive S1 and S2. No S3. No S4. No clicks, rubs or murmurs. Lungs: Lung sounds diminished to auscultation with scattered wheezing and rhonchi. Respirations even and nonlabored. Abdomen/GI: Bowel sounds present in all 4 quadrants. Bowel sounds normoactive. No abdominal tenderness. No mass. No hepatomegaly or splenomegaly. No bruits. Musculoskeletal/ Extremities: No tenderness on muscular exam. No ecchymosis. Vascular: Radial pulses equal. 2/4. Skin: No rash. Neurologic: Awake, alert and oriented times 3. No lateralizing deficits noted on gross inspection. Objective - Vital Signs Vital signs: Vital Signs Temp 98.1 F 02/06/20 03:00 Pulse 100 02/06/20 07:15 Resp 20 02/06/20 03:00 BP 136/81 02/06/20 03:00 Pulse Ox 92 L 02/06/20 03:00 Intake & Output 02/05/20 02/06/20 02/06/20 18:59 06:59 18:59 Intake Total 1320 1178.693 Balance 1320 1178.693 Weight 107.501 kg Intake: Intake, IV Titration 780 158.693 Amount Heparin Sod,Pork in 0.45% 158.693 NaCl 25,000 unit In 0.45 % NaCl 1 250ml.bag @ 9.3 UNITS/KG/HR 9.998 mls/hr IV .Q24H [facility] Rx#: [id number] Sodium Chloride 0.9% 1, 780 000 ml @ 130 mls/hr IV . Q7H42M [facility] Rx#:[id number] Oral 540 1020 Other: Voiding Method Toilet Toilet # Voids 3 2 - Labs CBC & Chem 7: 02/06/20 05:45 10/01/20 05:45 Labs: Abnormal Lab Results - Last 24 Hours (Table) 02/05/20 02/05/20 02/05/20 Range/Units 07:14 16:17 22:52 WBC 12.1 H (3.8-10.6) k/uL Neutrophils # 10.6 H (1.3-7.7) k/uL APTT 32.4 H (22.0-30.0) sec Sodium (137-145) mmol/L Creatinine (0.66-1.25) mg/dL Glucose (74-99) mg/dL POC Glucose (mg/dL) (75-99) mg/dL AST (17-59) U/L Total Protein (6.3-8.2) g/dL Albumin (3.5-5.0) g/dL Cholesterol 214 H (<200) mg/dL LDL Cholesterol, Calc 150 H (0-99) mg/dL HDL Cholesterol 37 L (40-60) mg/dL 02/06/20 02/06/20 02/06/20 Range/Units 05:45 05:45 05:45 WBC 19.9 H (3.8-10.6) k/uL Neutrophils # 17.4 H (1.3-7.7) k/uL APTT 39.5 H (22.0-30.0) sec Sodium 136 L (137-145) mmol/L Creatinine 0.61 L (0.66-1.25) mg/dL Glucose 143 H (74-99) mg/dL POC Glucose (mg/dL) (75-99) mg/dL AST 15 L (17-59) U/L Total Protein 6.1 L (6.3-8.2) g/dL Albumin 3.4 L (3.5-5.0) g/dL Cholesterol (<200) mg/dL LDL Cholesterol, Calc (0-99) mg/dL HDL Cholesterol (40-60) mg/dL 02/06/20 Range/Units 06:21 WBC (3.8-10.6) k/uL Neutrophils # (1.3-7.7) k/uL APTT (22.0-30.0) sec Sodium (137-145) mmol/L Creatinine (0.66-1.25) mg/dL Glucose (74-99) mg/dL POC Glucose (mg/dL) 153 H (75-99) mg/dL AST (17-59) U/L Total Protein (6.3-8.2) g/dL Albumin (3.5-5.0) g/dL Cholesterol (<200) mg/dL LDL Cholesterol, Calc (0-99) mg/dL HDL Cholesterol (40-60) mg/dL Microbiology - Last 24 Hours (Table) 02/05/20 07:14 Blood Culture - Preliminary Blood No Growth after 24 hours Assessment and Plan Assessment: 1. Left-sided Chest pain: EKG revealed sinus tachycardia with PVC, no acute changes. First troponin was negative. Nitropaste ordered. Consult for cardio in place and echo ordered. 2. Dyspnea. Associated with chest pain, consult for pulmonary 3. Lactic acidosis. Blood culture was done, IV fluids and place. 4. Leukocytosis. 5. Hyponatremia: Sodium 134, normal saline infusing we'll repeat labs in the morning 6. Exacerbation of COPD. Received IV azithromycin and Rocephin. On Solu-Medrol IV, Pulmicort and DuoNeb's in place along with pulmonary consult. 7. History of CVA. Follows with Dr. Montiel as outpatient 8. Hypertension. Stable, no current medications. 9. History of Parkinson's. Patient reports use of marijuana to control tremors. 10. Chronic lymphoid leukemia. Follows with primary care and blood work 2 times per year 11. GI prophylaxis. On PPI 12. DVT prophylaxis. On heparin Patient will be admitted to the hospital for minimum of 2 night stay. Discharge plan: Home with self-care Impression and plan of care have been directed as dictated by the signing physician. Trena Pemberton nurse practitioner acting as scribe for signing physician.
--- NOTE | 2020-02-06 10:43 | P.PN ---
Subjective HISTORY OF PRESENTING ILLNESS This is a pleasant 65-year-old male past medical history significant for Parkinson's disease, CVA 2, hypertension, COPD and chronic nicotine dependence. He denies prior history of coronary artery disease and does not follow in the office with a community relations specialist. Last night he continued to have significant shortness of breath, chest pain and tachycardia. His pain was sharp in nature and worsened by movement and deep breathing. He was initiated on cardizem for heart rates up to the 150's. Telemetry tracings reviewed. Rhythm is regular and appears to either be multi-focal atrial tachycardia or sinus tachyc ardia. No a-fib. This morning his rates between 100-104. He continues to have pain in his chest when he moves his torso. Blood pressure 136/81. Laboratory data reviewed, WBC 19.9, hemoglobin 14.5, platelets 294, sodium 136, potassium 4.2 and creatinine 0.61, TSH 1.95, LDL 1:15 HDL 37. Echocardiogram obtained reveals preserved LV systolic function with ejection fraction 60-65%, moderately enlarged right ventricle, mild TR with RVSP less than 35. PHYSICAL EXAMINATION CONSTITUTIONAL: No apparent distress. Upper extremity tremor noted. HEENT: Head is normocephalic. Pupils are equal, round. Sclerae anicteric. Mucous membranes of the mouth are moist. No JVD. No carotid bruit. CHEST EXAMINATION: Diminished bilaterally with scattered rhonchi and faint expiratory wheezes, no rales. No chest wall tenderness is noted on palpation or with deep breathing. HEART EXAMINATION: Regular rate and rhythm. S1, S2 heard. No murmurs, gallops or rub. EXTREMITIES: 2+ peripheral pulses, no lower extremity edema and no calf tenderness. ASSESSMENT Chest pain, atypical for angina. Pleuritic in nature. An acute coronary event has been ruled out. Sinus tachycardia, no arrhythmias noted on the monitor. Dyslipidemia Leukocytosis Lactic acidosis COPD and left lobe infiltrate, possible pneumonia History of CVA 2 in the past Chronic nicotine dependence PLAN Discontinue heparin and Cardizem infusion. Initiate oral Cardizem 180 mg daily and atorvastatin 40 mg daily. Continue aspirin as previously ordered. Ongoing medical management and treatment of underlying pulmonary disease. We will pursue outpatient stress testing in the office. Nurse Practitioner note has been reviewed, I agree with a documented findings and plan of care. Patient was seen and examined. Objective - Vital Signs Vital signs: Vital Signs Temp 98.1 F 02/06/20 03:00 Pulse 100 02/06/20 07:15 Resp 20 02/06/20 03:00 BP 136/81 02/06/20 03:00 Pulse Ox 92 L 02/06/20 03:00 Intake & Output 02/05/20 02/06/20 02/06/20 18:59 06:59 18:59 Intake Total 1320 1178.693 Balance 1320 1178.693 Weight 107.501 kg Intake: Intake, IV Titration 780 158.693 Amount Heparin Sod,Pork in 0.45% 158.693 NaCl 25,000 unit In 0.45 % NaCl 1 250ml.bag @ 9.3 UNITS/KG/HR 9.998 mls/hr IV .Q24H [facility] Rx#: [id number] Sodium Chloride 0.9% 1, 780 000 ml @ 130 mls/hr IV . Q7H42M [facility] Rx#:[id number] Oral 540 1020 Other: Voiding Method Toilet Toilet # Voids 3 2 - Labs CBC & Chem 7: 02/06/20 05:45 02/06/20 05:45 Labs: Abnormal Lab Results - Last 24 Hours (Table) 02/05/20 02/05/20 02/05/20 Range/Units 07:14 16:17 22:52 WBC 12.1 H (3.8-10.6) k/uL Neutrophils # 10.6 H (1.3-7.7) k/uL APTT 32.4 H (22.0-30.0) sec Sodium (137-145) mmol/L Creatinine (0.66-1.25) mg/dL Glucose (74-99) mg/dL POC Glucose (mg/dL) (75-99) mg/dL AST (17-59) U/L Total Protein (6.3-8.2) g/dL Albumin (3.5-5.0) g/dL Cholesterol 214 H (<200) mg/dL LDL Cholesterol, Calc 150 H (0-99) mg/dL HDL Cholesterol 37 L (40-60) mg/dL 02/06/20 02/06/20 02/06/20 Range/Units 05:45 05:45 05:45 WBC 19.9 H (3.8-10.6) k/uL Neutrophils # 17.4 H (1.3-7.7) k/uL APTT 39.5 H (22.0-30.0) sec Sodium 136 L (137-145) mmol/L Creatinine 0.61 L (0.66-1.25) mg/dL Glucose 143 H (74-99) mg/dL POC Glucose (mg/dL) (75-99) mg/dL AST 15 L (17-59) U/L Total Protein 6.1 L (6.3-8.2) g/dL Albumin 3.4 L (3.5-5.0) g/dL Cholesterol (<200) mg/dL LDL Cholesterol, Calc (0-99) mg/dL HDL Cholesterol (40-60) mg/dL 02/06/20 Range/Units 06:21 WBC (3.8-10.6) k/uL Neutrophils # (1.3-7.7) k/uL APTT (22.0-30.0) sec Sodium (137-145) mmol/L Creatinine (0.66-1.25) mg/dL Glucose (74-99) mg/dL POC Glucose (mg/dL) 153 H (75-99) mg/dL AST (17-59) U/L Total Protein (6.3-8.2) g/dL Albumin (3.5-5.0) g/dL Cholesterol (<200) mg/dL LDL Cholesterol, Calc (0-99) mg/dL HDL Cholesterol (40-60) mg/dL Microbiology - Last 24 Hours (Table) 02/05/20 07:14 Blood Culture - Preliminary Blood No Growth after 24 hours
[2020-02-06 12:56] LABS: Glucose,Whole Blood 137 mg/dL (75-99)
--- NOTE | 2020-02-06 13:22 | P.PN ---
Subjective Progress Note Date: 02/06/20 Principal diagnosis: Acute exacerbation of chronic obstructive pulmonary disease The patient today 02/06/2020 follow-up in the cardiac observation unit. He is currently sitting up in a chair at the bedside. Awake and alert in no acute distress. He is breathing a bit easier today compared to yesterday. Maintaining O2 saturations in the low 90s on 2 L/m per nasal cannula. He is afebrile. Blood cultures reveal no growth. White count 19.9. Hemoglobin 14.5. Sodium 136. Potassium 4.2. Creatinine 0.61. Remains on bronchodilators, IV Solu-Medrol, Augmentin. NicoDerm patch in place. Objective - Vital Signs Vital signs: Vital Signs Temp 97.7 F 02/06/20 09:00 Pulse 104 H 02/06/20 11:50 Resp 20 02/06/20 09:00 BP 133/77 02/06/20 09:00 Pulse Ox 92 L 02/06/20 09:00 Intake & Output 02/05/20 02/06/20 02/06/20 18:59 06:59 18:59 Intake Total 1320 1506.184 5611 Balance 1320 0472.327 0446 Weight 107.501 kg Intake: Intake, IV Titration 780 158.693 260 Amount Heparin Sod,Pork in 0.45% 158.693 NaCl 25,000 unit In 0.45 % NaCl 1 250ml.bag @ 9.3 UNITS/KG/HR 9.998 mls/hr IV .Q24H [facility] Rx#: [id number] Sodium Chloride 0.9% 1, 780 260 000 ml @ 130 mls/hr IV . Q7H42M [facility] Rx#:[id number] Oral 540 1020 780 Other: Voiding Method Toilet Toilet Toilet # Voids 3 2 1 - Exam GENERAL EXAM: Alert, active, on 2 L/m nasal cannula, comfortable in no apparent distress. HEAD: Normocephalic. EYES: Normal reaction of pupils, equal size. NOSE: Clear with pink turbinates. THROAT: No erythema or exudates. NECK: No masses, no JVD. CHEST: No chest wall deformity. LUNGS: Equal air entry with bilateral end expiratory wheeze, diminished. CVS: S1 and S2 normal with no audible murmur, regular rhythm. ABDOMEN: No hepatosplenomegaly, normal bowel sounds, no guarding or rigidity. SPINE: No scoliosis or deformity SKIN: No rashes CENTRAL NERVOUS SYSTEM: Tremors secondary to Parkinson's. No focal deficits, tone is normal in all 4 extremities. EXTREMITIES: There is no peripheral edema. No clubbing, no cyanosis. Peripheral pulses are intact. - Labs CBC & Chem 7: 02/06/20 05:45 02/06/20 05:45 Labs: Abnormal Lab Results - Last 24 Hours (Table) 02/05/20 02/05/20 02/05/20 Range/Units 07:14 16:17 22:52 WBC 12.1 H (3.8-10.6) k/uL Neutrophils # 10.6 H (1.3-7.7) k/uL APTT 32.4 H (22.0-30.0) sec Sodium (137-145) mmol/L Creatinine (0.66-1.25) mg/dL Glucose (74-99) mg/dL POC Glucose (mg/dL) (75-99) mg/dL AST (17-59) U/L Total Protein (6.3-8.2) g/dL Albumin (3.5-5.0) g/dL Cholesterol 214 H (<200) mg/dL LDL Cholesterol, Calc 150 H (0-99) mg/dL HDL Cholesterol 37 L (40-60) mg/dL 02/06/20 02/06/20 02/06/20 Range/Units 05:45 05:45 05:45 WBC 19.9 H (3.8-10.6) k/uL Neutrophils # 17.4 H (1.3-7.7) k/uL APTT 39.5 H (22.0-30.0) sec Sodium 136 L (137-145) mmol/L Creatinine 0.61 L (0.66-1.25) mg/dL Glucose 143 H (74-99) mg/dL POC Glucose (mg/dL) (75-99) mg/dL AST 15 L (17-59) U/L Total Protein 6.1 L (6.3-8.2) g/dL Albumin 3.4 L (3.5-5.0) g/dL Cholesterol (<200) mg/dL LDL Cholesterol, Calc (0-99) mg/dL HDL Cholesterol (40-60) mg/dL 02/06/20 02/06/20 Range/Units 06:21 12:53 WBC (3.8-10.6) k/uL Neutrophils # (1.3-7.7) k/uL APTT (22.0-30.0) sec Sodium (137-145) mmol/L Creatinine (0.66-1.25) mg/dL Glucose (74-99) mg/dL POC Glucose (mg/dL) 153 H 137 H (75-99) mg/dL AST (17-59) U/L Total Protein (6.3-8.2) g/dL Albumin (3.5-5.0) g/dL Cholesterol (<200) mg/dL LDL Cholesterol, Calc (0-99) mg/dL HDL Cholesterol (40-60) mg/dL Microbiology - Last 24 Hours (Table) 02/05/20 07:14 Blood Culture - Preliminary Blood No Growth after 24 hours Assessment and Plan Assessment: #1 Acute exacerbation of chronic obstructive pulmonary disease #2 Chronic and ongoing tobacco dependence #3 Atelectasis versus infiltrate of the lower lobes, suspect atelectasis #4 History of angina #5 History of leukemia #6 History of Parkinson's disease #7 History of previous CVA. #8 History of cervical arthritis. Plan: The patient was seen and evaluated by Dr. Brady He is improved but not quite back to his baseline Continue current treatment plan We'll continue to follow I, the cosigning physician, performed a history & physical examination of the patient. Lungs sounds with bilateral end expiratory wheeze, diminished. Maintaining good O2 saturations in the 90s on 2 L/m per nasal cannula. I discussed the assessment and plan of care with my nurse practitioner, Alisha Saldana. I attest to the above note as dictated by her.
[2020-02-06] MEDS ORDERED: ALPRAZolam 0.25 MG TAB PO PRN (14:58)
[2020-02-06 17:28] LABS: Glucose,Whole Blood 196 mg/dL (75-99)
[2020-02-06] MEDS: INSULIN ASPART (NovoLOG) 100 UNIT/ML VIAL SQ SCH (17:57)
[2020-02-06] MEDS: ATORVASTATIN 40 MG TAB PO SCH (20:34)
[2020-02-06 20:54] LABS: Glucose,Whole Blood 152 mg/dL (75-99)
[2020-02-07] MEDS: methylPREDNISolone SOD SUCCI 125 MG/2 ML VIAL IV SCH ×2 (01:07→06:50)
[2020-02-07] MEDS: SODIUM CHLORIDE 0.9% 1,000 ML IV SCH ×2 (01:43→06:42)
[2020-02-07] MEDS: INSULIN ASPART (NovoLOG) 100 UNIT/ML VIAL SQ SCH ×3 (06:46→17:21)
[2020-02-07 06:48] LABS: Glucose,Whole Blood 113 mg/dL (75-99)
[2020-02-07] MEDS: PANTOPRAZOLE 40 MG TABLET PO SCH (06:51)
[2020-02-07 06:52] LABS: Basophils % (A) 0 %; Eosinophils % (A) 0 %; Lymphocytes % (A) 8 %; MCH 28.5 pg (25.0-35.0); MCHC 32.5 g/dL (31.0-37.0); MCV 87.7 fL (80.0-100.0); Monocytes # (A) 0.6 k/uL (0-1.0); Monocytes % (A) 3 %; Neutrophils # (A) 20.6 k/uL (1.3-7.7); Neutrophils % (A) 88 %; Platelet Count 328 k/uL (150-450); RBC 4.91 m/uL (4.30-5.90); RDW 13.4 % (11.5-15.5); WBC 23.3 k/uL (3.8-10.6)
[2020-02-07] MEDS: IPRATROPIUM-ALBUTEROL 3 ML NEB INHALATION SCH ×4 (06:58→19:43)
[2020-02-07] MEDS: FORMOTEROL FUMARATE 20 MCG/2 ML NEBU INHALATION SCH ×2 (06:59→19:43)
[2020-02-07] MEDS: BUDESONIDE 1 MG/2 ML NEBU INHALATION SCH ×2 (06:59→19:43)
[2020-02-07 07:01] LABS: ALT 15 U/L (4-49); AST 16 U/L (17-59); African American GFR (CKD) >90 (>60 ml/min/1.73 sqM); Albumin 3.2 g/dL (3.5-5.0); Alkaline Phosphatase 69 U/L (38-126); Anion Gap 6 mmol/L; Blood Urea Nitrogen 14 mg/dL (9-20); Calcium 8.7 mg/dL (8.4-10.2); Carbon Dioxide 25 mmol/L (22-30); Chloride 107 mmol/L (98-107); Glucose 127 mg/dL (74-99); Non-African American GFR(CKD) >90 (>60 ml/min/1.73 sqM); Potassium 4.3 mmol/L (3.5-5.1); Sodium 138 mmol/L (137-145); Total Bilirubin 0.5 mg/dL (0.2-1.3); Total Protein 5.9 g/dL (6.3-8.2)
[2020-02-07] MEDS: HEPARIN SODIUM,PORCINE 5,000 UNIT/ML 1 ML VIAL SQ SCH ×2 (09:02→20:46)
[2020-02-07] MEDS: AMOXIC-POT CLAV 875-125MG 1 EACH TAB PO SCH ×2 (09:02→20:46)
[2020-02-07] MEDS: DILTIAZEM CD 180 MG CAP.ER.24H PO SCH (09:02)
[2020-02-07] MEDS: diazePAM 5 MG TAB PO PRN ×2 (09:02→20:49)
[2020-02-07] MEDS: ASPIRIN 81 MG PO SCH (09:02)
[2020-02-07] MEDS: CARBIDOPA-LEVODOPA 25-100 MG 1 EACH TAB PO SCH ×3 (09:03→20:49)
--- NOTE | 2020-02-07 10:19 | P.PN ---
Subjective Progress Note Date: 02/07/20 This is a 65-year-old male who is a patient of of Dr. Springer. Past medical history significant for COPD, CVA, hypertension, Parkinson's, and CLL. Patient does smoke 1 pack per day for approximately the last 40 years and marijuana daily for Parkinson's. Patient woke up approximately at 2 AM with left-sided chest pain and difficulty breathing. Denies any nausea diaphoresis but did report having tingling in the left arm and presented to the emergency room by EMS. EKG reveals sinus tachycardia with occasional PVC. CTA of the chest was performed and showed no evidence for acute PE, moderate to advanced emphysematous changes and upper lungs with fairly moderate fibrotic changes and lower lungs. First troponin was negative, sodium was 134, lactic acid 2.1, WBCs 12.6. Patient was admitted to cardiac observation, fluids are in place along with consults to cardiology and pulmonary. Plan for echo and likely stress test. Patient was covered with azithromycin and Rocephin IV. Awaiting home medication list. 02/05: Patient evaluated sitting on edge of bed this morning. Still complains of mild shortness of breath with pain on inspiration. Echo revealed EF 60-65%, with no pericardial effusion. White blood cells 19,000 today, patient was switched to Augmentin yesterday. Nurse reported patient had an episode of sinus tachycardia around 150 bpm that sustained for 20 minutes, cardiology was called and patient was placed on a Cardizem drip. Patient was sinus tach in the mon itor this morning in the low 100s. Blood pressure 136/81, pulse ox 92% on 2 L nasal cannula. Pulmonary and cardiology remain on the case. 02/06: Patient seen sitting on edge of bed complains of increased tremors from Parkinson's and insomnia likely due to IV steroids. We'll decrease Solu-Medrol to 40 mg every 8 hours. Also added Marinol, Sinemet, and Valium as needed. Discussed with patient this is likely due to IV steroids and should improve as these decrease. Nicotine patch decreased as well. Vital signs are stable, patient afebrile, pulse rate 103 and patient is off Cardizem drip. Blood pressure 166/89, pulse ox 92% on room air. Lungs sounds with improved aeration compared to yesterday. We'll continue to monitor patient along with pulmonary and cardiology. Review of Systems CONSTITUTIONAL: Well-developed no acute respiratory distress. EYES: No icterus sclerae, no conjunctivitis. EARS, NOSE, MOUTH, THROAT, and FACE: No sore throat, lymphadenopathy, carotid bruits or deformity. RESPIRATORY: Positive shortness of breath mild cough wheezes. CARDIOVASCULAR: No CP, Palpitation, PND, Orthopnea, or angina. Pain with inspiration GASTROINTESTINAL: No Abd pain, Nausea or vomiting, no Diarrhea or constipation, No GI Bleed, no distention or masses. GENITOURINARY: Negative for Hematuria or UTI, no kidney stones. INTEGUMENT/BREAST: Negative for any muscular injury with mild osteoarthritis.. HEMATOLOGIC/LYMPHATIC: Negative for bleed or purpura. MUSCULOSKELTAL: Negative for Myalgia or arthralgia. NEURLOGICAL: No LOC, Sz or syncope, blurred vision dizziness or abnormality. Significant tremors BEHAVIORAL/PSYCH: Negative. ENDOCRINE: Negative. Physical exam General: Patient awake alert and oriented x 3. No acute distress. HEENT: Sclerae are clear. Pupils equal, round and reactive to light bilaterally. No cervical adenopathy. No pharyngeal erythema or exudate. No thyromegaly. Lymphatic: No anterior cervical adenopathy. Chest: Heart rate with tachycardia and regular rhythm positive S1 and S2. No S3. No S4. No clicks, rubs or murmurs. Lungs: Lung sounds diminished to auscultation with scattered wheezing, improved aeration. Respirations even and nonlabored. Abdomen/GI: Bowel sounds present in all 4 quadrants. Bowel sounds normoactive. No abdominal tenderness. No mass. No hepatomegaly or splenomegaly. No bruits. Musculoskeletal/ Extremities: No tenderness on muscular exam. No ecchymosis. Vascular: PPP. +1 edema to bilateral legs. Skin: No rash. Neurologic: Awake, alert and oriented times 3. No lateralizing deficits noted on gross inspection. Significant tremors bilateral arms. Objective - Vital Signs Vital signs: Vital Signs Temp 97.5 F L 02/07/20 08:01 Pulse 103 H 02/07/20 08:01 Resp 20 02/07/20 08:01 BP 166/89 02/07/20 08:01 Pulse Ox 92 L 02/07/20 08:01 Intake & Output 02/06/20 02/07/20 02/07/20 18:59 06:59 18:59 Intake Total 3420 Balance 3420 Intake: Intake, IV Titration 1560 Amount Sodium Chloride 0.9% 1, 1560 000 ml @ 130 mls/hr IV . Q7H42M [facility] Rx#:[id number] Oral 1860 Other: Voiding Method Toilet Toilet # Voids 4 1 - Labs CBC & Chem 7: 02/07/20 06:13 02/07/20 06:13 Labs: Abnormal Lab Results - Last 24 Hours (Table) 02/06/20 02/06/20 02/06/20 Range/Units 12:53 17:27 20:51 WBC (3.8-10.6) k/uL Neutrophils # (1.3-7.7) k/uL Glucose (74-99) mg/dL POC Glucose (mg/dL) 137 H 196 H 152 H (75-99) mg/dL AST (17-59) U/L Total Protein (6.3-8.2) g/dL Albumin (3.5-5.0) g/dL 02/07/20 02/07/20 02/07/20 Range/Units 06:13 06:13 06:45 WBC 23.3 H (3.8-10.6) k/uL Neutrophils # 20.6 H (1.3-7.7) k/uL Glucose 127 H (74-99) mg/dL POC Glucose (mg/dL) 113 H (75-99) mg/dL AST 16 L (17-59) U/L Total Protein 5.9 L (6.3-8.2) g/dL Albumin 3.2 L (3.5-5.0) g/dL Microbiology - Last 24 Hours (Table) 02/05/20 07:14 Blood Culture - Preliminary Blood No Growth after 48 hours Assessment and Plan Assessment: 1. Left-sided Chest pain: EKG revealed sinus tachycardia with PVC, no acute changes. troponin were negative. Echocardiogram revealed preserved LV systolic function, EF 60-65%, moderately enlarged right ventricle, mild TR. Cardiology following. Patient was started on Cardizem 180 mg daily 2. Dyspnea. Associated with chest pain, likely exacerbation of COPD. consult for pulmonary 3. Lactic acidosis. Blood culture was done, IV fluids now discontinued. 4. Leukocytosis. Likely related to IV steroids. 5. Hyponatremia: Improved, sodium 138 today 6. Exacerbation of COPD. Received IV azithromycin and Rocephin. On Solu-Medrol IV, Pulmicort and DuoNeb's in place along with pulmonary consult. 7. History of CVA. Follows with Dr. Montiel as outpatient 8. Hypertension. Stable, metoprolol 25 mg daily started. 9. History of Parkinson's. Patient reports use of marijuana to control tremors. Will order Marinol, Sinemet, and Valium as needed. 10. Chronic lymphoid leukemia. Follows with primary care and blood work 2 times per year 11. GI prophylaxis. On PPI 12. DVT prophylaxis. On heparin 13. Sinus tachycardia. Now on Cardizem 180 mg daily along with metoprolol 25 mg. Patient will be admitted to the hospital for minimum of 2 night stay. Discharge plan: Home with self-care Impression and plan of care have been directed as dictated by the signing physician. Trena Pemberton nurse practitioner acting as scribe for signing physician.
--- NOTE | 2020-02-07 10:38 | P.PN ---
Subjective Progress Note Date: 02/07/20 CHIEF COMPLAINT: Chest pain HISTORY OF PRESENT ILLNESS: Patient examined this morning at the bedside. He denies chest pain or pressure. He currently denies shortness of breath at rest. He reports increased tremors from his Parkinson's disease. Patient was started on Cardizem yesterday. Patients heart rate is controlled this morning in the 90s. PHYSICAL EXAM: VITAL SIGNS: Reviewed. GENERAL: Well-developed in no acute distress. NECK: Supple. No JVD or thyromegaly LUNGS: Respirations even and unlabored. Lungs diminished with expiratory wheezing noted. HEART: Regular rate and rhythm. S1 and S2 heard. EXTREMITIES: Normal range of motion. No clubbing or cyanosis. Peripheral pulses intact. No lower extremity edema ASSESSMENT: Chest pain, atypical for angina. Pleuritic in nature. An acute coronary event has been ruled out. Sinus tachycardia, no arrhythmias noted on the monitor. Dyslipidemia Leukocytosis Lactic acidosis COPD and left lobe infiltrate, possible pneumonia History of CVA 2 in the past Chronic nicotine dependence PLAN: Continue current cardiac medications Continue telemetry monitoring Patient to follow up outpatient with Dr. Tan. Possible outpatient stress test. We will sign off. Please reconsult if needed. Nurse practitioner note has been reviewed by physician. Signing provider agrees with the documented findings, assessment, and plan of care. Objective - Vital Signs Vital signs: Vital Signs Temp 97.5 F L 02/07/20 08:01 Pulse 103 H 02/07/20 08:01 Resp 20 02/07/20 08:01 BP 166/89 02/07/20 08:01 Pulse Ox 92 L 02/07/20 08:01 Intake & Output 02/06/20 02/07/20 02/07/20 18:59 06:59 18:59 Intake Total 3420 Balance 3420 Intake: Intake, IV Titration 1560 Amount Sodium Chloride 0.9% 1, 1560 000 ml @ 130 mls/hr IV . Q7H42M COUNT INCLUDES THE [facility] Rx#:[id number] Oral 1860 Other: Voiding Method Toilet Toilet # Voids 4 1 - Labs CBC & Chem 7: 02/07/20 06:13 02/07/20 06:13 Labs: Abnormal Lab Results - Last 24 Hours (Table) 02/06/20 02/06/20 02/06/20 Range/Units 12:53 17:27 20:51 WBC (3.8-10.6) k/uL Neutrophils # (1.3-7.7) k/uL Glucose (74-99) mg/dL POC Glucose (mg/dL) 137 H 196 H 152 H (75-99) mg/dL AST (17-59) U/L Total Protein (6.3-8.2) g/dL Albumin (3.5-5.0) g/dL 02/07/20 02/07/20 02/07/20 Range/Units 06:13 06:13 06:45 WBC 23.3 H (3.8-10.6) k/uL Neutrophils # 20.6 H (1.3-7.7) k/uL Glucose 127 H (74-99) mg/dL POC Glucose (mg/dL) 113 H (75-99) mg/dL AST 16 L (17-59) U/L Total Protein 5.9 L (6.3-8.2) g/dL Albumin 3.2 L (3.5-5.0) g/dL Microbiology - Last 24 Hours (Table) 02/05/20 07:14 Blood Culture - Preliminary Blood No Growth after 48 hours
[2020-02-07 13:01] LABS: Glucose,Whole Blood 118 mg/dL (75-99)
[2020-02-07] MEDS: METOPROLOL SUCCINATE (ER) 25 MG TAB.ER.24H PO SCH (14:43)
--- NOTE | 2020-02-07 14:46 | PN ---
PROGRESS NOTE PULMONARY/CRITICAL CARE PROGRESS NOTE: DATE OF SERVICE: February 07, 2020 This is a 65-year-old gentleman that we have been seeing for COPD exacerbation. Today, he is sitting in the chair. He is feeling better. Still very short of breath particularly on exertion. On forced exhalation, he wheezes and coughs. He is improved though. In addition, he has a history of chronic and ongoing tobacco dependence, angina, leukemia, Parkinson's disease, previous CVA, and cervical arthritis. PHYSICAL EXAMINATION: VITAL SIGNS: Current vital signs are reviewed. Temperature is 97.5, heart rate 90, respiratory rate 20. Blood pressure 166/89, mean 114, room air saturation 96%. GENERAL: Appears in no acute distress. HEENT: Examination is examination is grossly unremarkable. Nasal O2 noted. NECK: Supple full range of motion. No adenopathy or thyromegaly. Neck veins are flat. CARDIOVASCULAR: Examination reveals regular rhythm and rate. Heart rate 80 beats per minute. S1, S2 normal. Heart sounds are distant. LUNGS: Lungs reveal relatively clear breath sounds are normal respiratory effort. On forced maneuver, the patient has coarse expiratory rhonchi and wheezes. He also coughs and wheezes on forced maneuver. ABDOMEN: Soft. Bowel sounds are heard. EXTREMITIES are intact. No cyanosis, clubbing, or edema. SKIN: Without rash. NEUROLOGIC: Examination is brief but nonfocal. LABS: Reviewed. White count 23.3, hemoglobin 14, hematocrit 43.0, platelet count 328,000. Sodium 138, potassium 4.3, chloride 107, CO2 25. Anion gap is 6. BUN and creatinine were 14 and 0.67. Microbiology is currently negative. No recent x-ray to report. Medications are reviewed. ASSESSMENT: 1. Acute exacerbation of chronic obstructive pulmonary disease. 2. Chronic and ongoing tobacco dependence. 3. Atelectasis versus infiltrate of the lower lobe, atelectasis most likely. 4. History of angina pectoris. 5. History of leukemia. 6. History of Parkinson's disease, currently on carbidopa/L-dopa. 7. Previous history of cerebrovascular accident. 8. History of cervical arthritis. PLAN: The patient is improving. The patient is not quite back to baseline. We will continue with the updrafts and steroids. Additional recommendations and suggestions are forthcoming. Prognosis is guarded. The patient is counseled about the importance of smoking cessation. MMODL / IJN: [id number] /
[2020-02-07 17:04] LABS: Glucose,Whole Blood 161 mg/dL (75-99)
[2020-02-07] MEDS: methylPREDNISolone SOD SUCCI 40 MG/ML 1 ML VIAL IV SCH ×2 (17:21→23:26)
[2020-02-07] MEDS ORDERED: INFLUENZA VACCINE (6 MOS+) 60 MCG/0.5 ML SYRINGE IM ONE (18:40)
[2020-02-07 20:46] LABS: Glucose,Whole Blood 181 mg/dL (75-99)
[2020-02-07] MEDS: ATORVASTATIN 40 MG TAB PO SCH (20:46)
[2020-02-07 23:31] LABS: Glucose,Whole Blood 157 mg/dL (75-99)
[2020-02-08 06:25] LABS: Glucose,Whole Blood 112 mg/dL (75-99)
[2020-02-08] MEDS: PANTOPRAZOLE 40 MG TABLET PO SCH (06:29)
[2020-02-08] MEDS: diazePAM 5 MG TAB PO PRN (06:31)
[2020-02-08] MEDS: INSULIN ASPART (NovoLOG) 100 UNIT/ML VIAL SQ SCH (06:33)
[2020-02-08] MEDS: ASPIRIN 81 MG PO SCH (07:47)
[2020-02-08] MEDS: DILTIAZEM CD 180 MG CAP.ER.24H PO SCH (07:47)
[2020-02-08] MEDS: IPRATROPIUM-ALBUTEROL 3 ML NEB INHALATION SCH ×2 (07:47→11:39)
[2020-02-08] MEDS: FORMOTEROL FUMARATE 20 MCG/2 ML NEBU INHALATION SCH (07:47)
[2020-02-08] MEDS: AMOXIC-POT CLAV 875-125MG 1 EACH TAB PO SCH (07:47)
[2020-02-08] MEDS: METOPROLOL SUCCINATE (ER) 25 MG TAB.ER.24H PO SCH (07:47)
[2020-02-08] MEDS: BUDESONIDE 1 MG/2 ML NEBU INHALATION SCH (07:47)
[2020-02-08] MEDS: CARBIDOPA-LEVODOPA 25-100 MG 1 EACH TAB PO SCH (07:47)
[2020-02-08] MEDS: methylPREDNISolone SOD SUCCI 40 MG/ML 1 ML VIAL IV SCH (07:48)
[2020-02-08] MEDS: HEPARIN SODIUM,PORCINE 5,000 UNIT/ML 1 ML VIAL SQ SCH (07:48)
[2020-02-08 08:04] LABS: Basophils % (A) 0 %; Eosinophils % (A) 0 %; HCT 43.5 % (39.0-53.0); HGB 14.1 gm/dL (13.0-17.5); Lymphocytes # (A) 1.9 k/uL (1.0-4.8); Lymphocytes % (A) 10 %; MCH 28.3 pg (25.0-35.0); MCHC 32.5 g/dL (31.0-37.0); MCV 87.3 fL (80.0-100.0); Mean Platelet Volume 7.9; Monocytes # (A) 0.5 k/uL (0-1.0); Monocytes % (A) 3 %; Neutrophils # (A) 15.5 k/uL (1.3-7.7); Neutrophils % (A) 87 %; Platelet Count 347 k/uL (150-450); RBC 4.98 m/uL (4.30-5.90); RDW 13.4 % (11.5-15.5); WBC 17.9 k/uL (3.8-10.6)
[2020-02-08] MEDS ORDERED: INFLUENZA VACCINE (6 MOS+) 60 MCG/0.5 ML SYRINGE IM ONE (09:00)
[2020-02-08 09:03] VITALS: BP 144/80; RESP 18; TEMP 97.9
--- NOTE | 2020-02-08 10:08 | P.DS ---
Providers Date of admission: 02/06/20 12:06 Attending physician: Kofi Hicks Consults: 02/05/20 08:44 Consult Physician Routine Consulting Provider: Aleksander Brady Consult Reason/Comments: COPD Do you want consulting provider notified?: Yes Primary care physician: [facility] Hospital Course: This is a 65-year-old male who is a patient of of Dr. Springer. Past medical history significant for COPD, CVA, hypertension, Parkinson's, and CLL. Patient does smoke 1 pack per day for approximately the last 40 years and marijuana daily for Parkinson's. Patient woke up approximately at 2 AM with left-sided chest pain and difficulty breathing. Denies any nausea diaphoresis but did report having tingling in the left arm and presented to the emergency room by EMS. EKG reveals sinus tachycardia with occasional PVC. CTA of the chest was performed and showed no evidence for acute PE, moderate to advanced emphysematous changes and upper lungs with fairly moderate fibrotic changes and lower lungs. First troponin was negative, sodium was 134, lactic acid 2.1, WBCs 12.6. Patient was admitted to cardiac observation, fluids are in place along with consults to cardiology and pulmonary. Plan for echo and likely stress test. Patient was covered with azithromycin and Rocephin IV. Awaiting home medication list. 02/05: Patient evaluated sitting on edge of bed this morning. Still complains of mild shortness of breath with pain on inspiration. Echo revealed EF 60-65%, with no pericardial effusion. White blood cells 19,000 today, patient was switched to Augmentin yesterday. Nurse reported patient had an episode of sinus tachycardia around 150 bpm that sustained for 20 minutes, cardiology was called and patient was placed on a Cardizem drip. Patient was sinus tach in the mon itor this morning in the low 100s. Blood pressure 136/81, pulse ox 92% on 2 L nasal cannula. Pulmonary and cardiology remain on the case. 02/06: Patient seen sitting on edge of bed complains of increased tremors from Parkinson's and insomnia likely due to IV steroids. We'll decrease Solu-Medrol to 40 mg every 8 hours. Also added Marinol, Sinemet, and Valium as needed. Discussed with patient this is likely due to IV steroids and should improve as these decrease. Nicotine patch decreased as well. Vital signs are stable, patient afebrile, pulse rate 103 and patient is off Cardizem drip. Blood pressure 166/89, pulse ox 92% on room air. Lungs sounds with improved aeration compared to yesterday. We'll continue to monitor patient along with pulmonary and cardiology. 02/07: She is found sitting up in a chair today. Patient states that he was able to sleep last night. His tremors have decreased with the addition of Marinol, the Sinemet, and Valium. Patient is ready to go home. He is tolerating the decrease in steroids without any difficulties. Vital signs are stable, patient has been afebrile. Pulse rate 81, respirations 18, blood pressure 144/80 pulse ox 93%. Patient instructed to follow up with his primary care physician within a week. Discussed the addition of new medications such as Sinemet and programs that could assist with cough. Patient will be discharged on a oral dose of tapering steroids, continue with DuoNeb and Pulmicort. Discharge diagnosis: 1. Left-sided Chest pain: 2. Dyspnea. Associated with chest pain, likely exacerbation of COPD. 3. Lactic acidosis. 4. Leukocytosis. 5. Hyponatremia: 6. Exacerbation of COPD. 7. History of CVA. 8. Hypertension. 9. History of Parkinson's. 10. Chronic lymphoid leukemia. 11. Sinus tachycardia. Discharge disposition: Home with homecare Impression and plan of care have been directed as dictated by the signing physician. Thelma Fregoso nurse practitioner acting as scribe for signing physician. Patient Condition at Discharge: Stable Plan - Discharge Summary Discharge Rx Participant: No New Discharge Prescriptions: New Aspirin 81 mg PO DAILY chew Amoxic-Pot Clav 875-125Mg [Augmentin 875-125] 1 each PO Q12HR #14 tab Diltiazem Cd [Cardizem CD] 180 mg PO DAILY cap.er.24h Ipratropium-Albuterol Nebulize [Duoneb 0.5 mg-3 mg/3 ml Soln] 3 ml INHALATION RT-QID #120 ml Atorvastatin [Lipitor] 40 mg PO HS tab Formoterol Fumarate [Perforomist] 20 mcg INHALATION RT-BID #1 nebu predniSONE 10 mg PO DIRECTED #40 tab Budesonide [Pulmicort] 1 mg INHALATION RT-BID #60 ml Carbidopa-Levodopa 25-100 mg [Sinemet 25-100 mg] 0.5 each PO TID #90 tab Metoprolol Succinate (ER) [Toprol XL] 25 mg PO DAILY tab.er.24h ALPRAZolam [Xanax] 0.25 mg PO BID PRN tab PRN Reason: Parkinsonism Continue Cyclobenzaprine [Flexeril] 10 mg PO TID PRN PRN Reason: Muscle Spasm Discharge Medication List Cyclobenzaprine [Flexeril] 10 mg PO TID PRN 02/05/20 [History] ALPRAZolam [Xanax] 0.25 mg PO BID PRN tab 02/08/20 [Rx] Amoxic-Pot Clav 875-125Mg [Augmentin 875-125] 1 each PO Q12HR #14 tab 02/08/20 [Rx] Aspirin 81 mg PO DAILY chew 02/08/20 [Rx] Atorvastatin [Lipitor] 40 mg PO HS tab 02/08/20 [Rx] Budesonide [Pulmicort] 1 mg INHALATION RT-BID #60 ml 02/08/20 [Rx] Carbidopa-Levodopa 25-100 mg [Sinemet 25-100 mg] 0.5 each PO TID #90 tab 02/08/20 [Rx] Diltiazem Cd [Cardizem CD] 180 mg PO DAILY cap.er.24h 02/08/20 [Rx] Formoterol Fumarate [Perforomist] 20 mcg INHALATION RT-BID #1 nebu 02/08/20 [Rx] Ipratropium-Albuterol Nebulize [Duoneb 0.5 mg-3 mg/3 ml Soln] 3 ml INHALATION RT-QID #120 ml 02/08/20 [Rx] Metoprolol Succinate (ER) [Toprol XL] 25 mg PO DAILY tab.er.24h 02/08/20 [Rx] predniSONE 10 mg PO DIRECTED #40 tab 02/08/20 [Rx] Follow up Appointment(s)/Referral(s): [facility], [NON-STAFF] - 1-2 Days Earnest Escobar DO [Primary Care Provider] - 1-2 days Reese Tan MD [STAFF PHYSICIAN] - 2 Weeks
[2020-02-08 11:41] VITALS: PULSE 82
--- NOTE | 2020-02-08 15:57 | PN ---
PROGRESS NOTE PULMONARY/CRITICAL CARE PROGRESS NOTE: DATE OF SERVICE: 02/08/2020 This is a 65-year-old gentleman that we have been seeing for COPD exacerbation. He is sitting up in the chair. He is feeling better. Yesterday, he was still having shortness of breath particularly with exertion. Today, he feels much improved. He is still short of breath on exertion but he is feeling significantly improved just overnight. His complaints include shortness of breath on exertion, occasional dry nonproductive cough and occasional wheezing. He denies any fever or chills. There is no chest pain or chest discomfort. He denies any nausea, vomiting, diarrhea or genitourinary complaints. PHYSICAL EXAMINATION: VITAL SIGNS: Current vital signs are reviewed. Temperature 97.9, heart rate 81, respiratory rate 18, blood pressure 144/80, mean 101 and 2 L saturation 93%. Appears in no acute distress. No respiratory distress, audible wheezing or use of accessory muscles. HEENT: Examination is grossly unremarkable. NECK: Supple. Full range of motion. No adenopathy. Neck veins are flat. CARDIOVASCULAR: Examination reveals regular rhythm rate. Heart rate in the low 80s. S1, S2 normal. There is no murmur. LUNGS: Reveal severely diminished breath sounds throughout. A few scattered high- pitched wheezes. A few scattered rhonchi. Breath sounds are equal bilaterally and much improved. ABDOMEN: Soft. Bowel sounds are heard. EXTREMITIES are intact. No cyanosis, clubbing, or edema. SKIN: Without rash. NEUROLOGIC: Examination is brief but nonfocal. LABS: Reviewed. White count 17.9, hemoglobin 14.1, hematocrit 43.5, platelet count 347, Microbiology is currently pending or negative. No recent chest x-ray. Medications are reviewed. ASSESSMENT: 1. Acute exacerbation of chronic obstructive pulmonary disease. 2. Chronic and ongoing tobacco dependence despite counseling. 3. Atelectasis versus infiltrate of the lower lobe, likely mostly atelectasis. 4. History of angina pectoris. 5. History of leukemia. 6. History of Parkinson's disease, currently on carbidopa/levodopa. 7. Prior history of cerebrovascular accident. 8. History of cervical arthritis. PLAN: The patient is doing well. He might be considered for discharge in next 24 to 48 hours. No additional recommendations are made. We will continue to follow. If he is discharged, he should go home on a short course of antibiotics and prednisone with a burst and taper beginning with 40 mg, tapering down by 10 mg every 5th day. In addition, the patient should follow up with us in the Pulmonary office for further evaluation. MMODL / IJN: [id number] /
== END 2020-02-08 13:45 | disposition home health service (06) | DRG 191 ==
LOC: EC 07:08 → 3NCARDOBS 08:56 → OBSVTOIN 02-06 12:06
PROVIDERS: ADMIT Internal Medicine Geriatric Medicine; ATTEND Internal Medicine Geriatric Medicine
DX: J44.1 Chronic obstructive pulmonary disease with (acute) exacerbation (principal); C91.10 Chronic lymphocytic leukemia of B-cell type not having achieved remission; E87.2 Acidosis; E87.1 Hypo-osmolality and hyponatremia; J98.11 Atelectasis; I11.9 Hypertensive heart disease without heart failure; E78.5 Hyperlipidemia, unspecified; G20 Parkinson's disease; F17.210 Nicotine dependence, cigarettes, uncomplicated; M47.812 Spondylosis without myelopathy or radiculopathy, cervical region; R00.0 Tachycardia, unspecified; I49.3 Ventricular premature depolarization; G47.00 Insomnia, unspecified; F12.90 Cannabis use, unspecified, uncomplicated; T38.0X5A Adverse effect of glucocorticoids and synthetic analogues, initial encounter; Z79.899 Other long term (current) drug therapy; Z90.49 Acquired absence of other specified parts of digestive tract; Z80.0 Family history of malignant neoplasm of digestive organs; Z86.73 Personal history of transient ischemic attack (TIA), and cerebral infarction without residual deficits; Z90.89 Acquired absence of other organs; Z98.890 Other specified postprocedural states; Z80.1 Family history of malignant neoplasm of trachea, bronchus and lung
CPT/HCPCS: 36415; 71045; 71275; 80053; 80061; 83605; 83735; 83880; 84443; 84484; 85025; 85610; 85730; 87040; 90686; 93005; 93306; 94640; 94760; 96361; 96365; 96375; 99291

== ENCOUNTER 2023-07-04 14:51 | Emergency (ER) | payer MEDICARE ==
--- NOTE | 2023-07-04 16:01 | ED ---
General Adult HPI - General Chief complaint: Shortness of Breath Stated complaint: BEN,muscle spasms Time Seen by Provider: 07/04/23 15:49 Source: patient Mode of arrival: ambulatory Limitations: no limitations - History of Present Illness Initial comments: This patient is a 68-year-old man who presents to evaluation for 2 days of muscle spasms. He states that they are mainly involving the muscles of his trunk, his abdomen and chest wall. Patient states that the spasms last for minutes at a time. They are severe. They have been causing him so much pain that he is nauseated and he has vomited once. Onset/Timin -: days(s) Location: chest, abdomen Radiation: non-radiation Quality: other (Spasms) Consistency: intermittent Improves with: none Worsens with: none Associated Symptoms: denies other symptoms Treatments Prior to Arrival: none - Related Data Home Medications Medication Instructions Recorded Confirmed Cyclobenzaprine [Flexeril] 10 mg PO TID PRN 02/05/20 02/05/20 Previous Rx's Medication Instructions Recorded ALPRAZolam [Xanax] 0.25 mg PO BID PRN tab 02/08/20 Amoxic-Pot Clav 875-125Mg 1 each PO Q12HR #14 tab 02/08/20 [Augmentin 875-125] Aspirin 81 mg PO DAILY chew 02/08/20 Atorvastatin [Lipitor] 40 mg PO HS tab 02/08/20 Budesonide [Pulmicort] 1 mg INHALATION RT-BID #60 ml 02/08/20 Carbidopa-Levodopa 25-100 mg 0.5 each PO TID #90 tab 02/08/20 [Sinemet 25-100 mg] Diltiazem Cd [Cardizem CD] 180 mg PO DAILY cap.er.24h 02/08/20 Formoterol Fumarate [Perforomist] 20 mcg INHALATION RT-BID #1 nebu 02/08/20 Ipratropium-Albuterol Nebulize 3 ml INHALATION RT-QID #120 ml 02/08/20 [Duoneb 0.5 mg-3 mg/3 ml Soln] Metoprolol Succinate (ER) [Toprol 25 mg PO DAILY tab.er.24h 02/08/20 XL] predniSONE 10 mg PO DIRECTED #40 tab 02/08/20 diazePAM [Valium] 5 mg PO TID PRN 3 Days #12 tab 07/04/23 diazePAM [Valium] 5 mg PO TID PRN 3 Days #12 tab 07/04/23 Allergies Allergy/AdvReac Type Severity Reaction Status Date / Time No Known Allergies Allergy Verified 02/05/20 08:34 Review of Systems ROS Statement: Those systems with pertinent positive or pertinent negative responses have been documented in the HPI. ROS Other: All systems not noted in ROS Statement are negative. 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", parkinsons, leukemia, arthritis in neck History of Any Multi-Drug Resistant Organisms: None Reported Past Surgical History: Cholecystectomy, Hernia Repair, Tonsillectomy Past Anesthesia/Blood Transfusion Reactions: No Reported Reaction Past Psychological History: No Psychological Hx Reported Smoking Status: Current every day smoker Past Alcohol Use History: None Reported Past Drug Use History: Marijuana - Past Family History Mother Family Medical History: Cancer (lung CA) Sister(s) Family Medical History: Cancer (esophaegal ) Father History Unknown: Yes General Exam Limitations: no limitations General appearance: alert, in no apparent distress Head exam: Present: atraumatic, normocephalic Eye exam: Present: normal appearance. Absent: scleral icterus, conjunctival injection ENT exam: Present: normal oropharynx Neck exam: Present: normal inspection Respiratory exam: Present: normal lung sounds bilaterally. Absent: respiratory distress, wheezes, rales, rhonchi, stridor Cardiovascular Exam: Present: regular rate, normal rhythm, normal heart sounds. Absent: systolic murmur, diastolic murmur, rubs, gallop GI/Abdominal exam: Present: soft. Absent: distended, tenderness, guarding, rebound, rigid, mass Extremities exam: Present: normal inspection, normal capillary refill. Absent: pedal edema, calf tenderness Back exam: Present: normal inspection. Absent: CVA tenderness (R), CVA tenderness (L) Neurological exam: Present: alert. Absent: motor sensory deficit Skin exam: Present: warm, dry, intact, other (Mild venous stasis changes bilaterally) Course Vital Signs 07/04/23 07/04/23 07/04/23 15:13 17:30 17:40 Temperature 98.1 F 98 F Pulse Rate 105 H 92 Respiratory 18 24 Rate Blood Pressure 141/82 158/78 O2 Sat by Pulse 97 95 94 L Oximetry 07/04/23 07/04/23 07/04/23 17:50 18:26 18:55 Temperature 98.1 F Pulse Rate 91 Respiratory 26 H 18 Rate Blood Pressure 147/81 O2 Sat by Pulse 96 96 Oximetry EKG Findings - EKG Results: EKG: interpreted by JEREMIAH, sinus rhythm (With sinus arrhythmia rate 97 bpm), normal axis, normal QRS, normal ST/T Medical Decision Making - Medical Decision Making Was pt. sent in by a medical professional or institution (CHUCK Camacho, MINCING MACHINE OPERATOR, urgent care, hospital, or skilled nursing...) When possible be specific @ -[No] Did you speak to anyone other than the patient for history (EMS, parent, family, police, friend...)? What history was obtained from this source @ -[No] Did you review nursing and triage notes (agree or disagree)? Why? @ -[I reviewed and agree with nursing and triage notes] Were old charts reviewed (outside hosp., previous admission, EMS record, old EKG, old radiological studies, urgent care reports/EKG's, skilled nursing records)? Report findings @ -[No old charts were reviewed] Differential Diagnosis (chest pain, altered mental status, abdominal pain women, abdominal pain men, vaginal bleeding, weakness, fever, dyspnea, syncope, headache, dizziness, GI bleed, back pain, seizure, CVA, palpatations, mental health, musculoskeletal)? @ -[Differential Musculoskeletal Muscular strain, contusion, ligament sprain, fracture, arthritis, septic arthritis, bursitis, cellulitis, muscle spasm, nerve compression, DVT, arterial occlusion, herpes zoster, electrolyte abnormality, tumor.... This is not meant to be in all inclusive list EKG interpreted by me (3pts min.). @ -[As above] X-rays interpreted by me (1pt min.). @ -[None done] CT interpreted by me (1pt min.). @ -[None done] U/S interpreted by me (1pt. min.). @ -[None done] What testing was considered but not performed or refused? (CT, X-rays, U/S, labs)? Why? @ -[None] What meds were considered but not given or refused? Why? @ -[None] Did you discuss the management of the patient with other professionals (professionals i.e. , PA, MINCING MACHINE OPERATOR, lab, RT, psych nurse, public health social worker, storage management architect, teacher, career services officer, caser shoe parts)? Give summary @ -[No] Was smoking cessation discussed for >3mins.? @ -[No] Was critical care preformed (if so, how long)? @ -[No] Were there social determinants of health that impacted care today? How? (Homelessness, low income, unemployed, alcoholism, drug addiction, transportation, low edu. Level, literacy, decrease access to med. care, usp, rehab)? @ -[No] Was there de-escalation of care discussed even if they declined (Discuss DNR or withdrawal of care, Hospice)? DNR status @ -[No] What co-morbidities impacted this encounter? (DM, HTN, Smoking, COPD, CAD, Cancer, CVA, ARF, Chemo, Hep., AIDS, mental health diagnosis, sleep apnea, morbid obesity)? @ -[None] Was patient admitted / discharged? Hospital course, mention meds given and route, prescriptions, significant lab abnormalities, going to OR and other p ertinent info. @ -[Patient is a 68-year-old man here to have evaluation of muscle spasms mainly of his trunk. The patient did have relief of the symptoms with treatment and then wanted to go. Discussed appropriate further care and follow-up as well as return parameters. Undiagnosed new problem with uncertain prognosis? @ -[No] Drug Therapy requiring intensive monitoring for toxicity (Heparin, Nitro, Insulin, Cardizem)? @ -[No] Were any procedures done? @ -[No] Diagnosis/symptom? @ -[Acute muscular spasm Acute, or Chronic, or Acute on Chronic? @ -[Acute Uncomplicated (without systemic symptoms) or Complicated (systemic symptoms)? @ -[default] Side effects of treatment? @ -[No] Exacerbation, Progression, or Severe Exacerbation? @ -[No] Poses a threat to life or bodily function? How? (Chest pain, USA, AR, pneumonia, PE, COPD, DKA, ARF, appy, cholecystitis, CVA, Diverticulitis, Homicidal, Suicidal, threat to staff... and all critical care pts) @ -[No] - Lab Data Result diagrams: 07/04/23 16:06 07/04/23 16:06 Lab Results 07/04/23 07/04/23 07/04/23 Range/Units 16:06 16:06 16:06 WBC 13.4 H (3.8-10.6) k/uL RBC 5.73 (4.30-5.90) m/uL Hgb 17.3 (13.0-17.5) gm/dL Hct 50.9 (39.0-53.0) % MCV 88.9 (80.0-100.0) fL MCH 30.2 (25.0-35.0) pg MCHC 34.0 (31.0-37.0) g/dL RDW 13.2 (11.5-15.5) % Plt Count 230 (150-450) k/uL MPV 8.9 Neutrophils % 61 % Lymphocytes % 31 % Monocytes % 5 % Eosinophils % 2 % Basophils % 1 % Neutrophils # 8.2 H (1.3-7.7) k/uL Lymphocytes # 4.1 (1.0-4.8) k/uL Monocytes # 0.7 (0-1.0) k/uL Eosinophils # 0.2 (0-0.7) k/uL Basophils # 0.1 (0-0.2) k/uL PT 10.4 (10.0-12.5) sec INR 0.9 (<1.2) APTT 23.7 (22.0-30.0) sec VBG pH (7.31-7.41) VBG pCO2 (37-51) mmHg VBG HCO3 (24-28) mmol/L Sodium 137 (137-145) mmol/L Potassium 5.1 (3.5-5.1) mmol/L Chloride 105 (98-107) mmol/L Carbon Dioxide 22 (22-30) mmol/L Anion Gap 10 mmol/L BUN 18 (9-20) mg/dL Creatinine 0.93 (0.66-1.25) mg/dL Est GFR (CKD-EPI)AfAm >90 (>60 ml/min/1.73 sqM) Est GFR (CKD-EPI)NonAf 85 (>60 ml/min/1.73 sqM) Glucose 98 (74-99) mg/dL Calcium 9.3 (8.4-10.2) mg/dL Magnesium 2.2 (1.6-2.3) mg/dL Total Bilirubin 1.2 (0.2-1.3) mg/dL AST 45 (17-59) U/L ALT 22 (4-49) U/L Alkaline Phosphatase 71 (38-126) U/L Troponin I (0.000-0.034) ng/mL Total Protein 7.9 (6.3-8.2) g/dL Albumin 4.7 (3.5-5.0) g/dL 07/04/23 07/04/23 Range/Units 16:06 17:09 WBC (3.8-10.6) k/uL RBC (4.30-5.90) m/uL Hgb (13.0-17.5) gm/dL Hct (39.0-53.0) % MCV (80.0-100.0) fL MCH (25.0-35.0) pg MCHC (31.0-37.0) g/dL RDW (11.5-15.5) % Plt Count (150-450) k/uL MPV Neutrophils % % Lymphocytes % % Monocytes % % Eosinophils % % Basophils % % Neutrophils # (1.3-7.7) k/uL Lymphocytes # (1.0-4.8) k/uL Monocytes # (0-1.0) k/uL Eosinophils # (0-0.7) k/uL Basophils # (0-0.2) k/uL PT (10.0-12.5) sec INR (<1.2) APTT (22.0-30.0) sec VBG pH 7.41 (7.31-7.41) VBG pCO2 39 (37-51) mmHg VBG HCO3 25 (24-28) mmol/L Sodium (137-145) mmol/L Potassium (3.5-5.1) mmol/L Chloride (98-107) mmol/L Carbon Dioxide (22-30) mmol/L Anion Gap mmol/L BUN (9-20) mg/dL Creatinine (0.66-1.25) mg/dL Est GFR (CKD-EPI)AfAm (>60 ml/min/1.73 sqM) Est GFR (CKD-EPI)NonAf (>60 ml/min/1.73 sqM) Glucose (74-99) mg/dL Calcium (8.4-10.2) mg/dL Magnesium (1.6-2.3) mg/dL Total Bilirubin (0.2-1.3) mg/dL AST (17-59) U/L ALT (4-49) U/L Alkaline Phosphatase (38-126) U/L Troponin I <0.012 (0.000-0.034) ng/mL Total Protein (6.3-8.2) g/dL Albumin (3.5-5.0) g/dL Disposition Clinical Impression: Parkinsons disease, Muscle spasm Disposition: HOME SELF-CARE Condition: Good Instructions (If sedation given, give patient instructions): Muscle Spasm (ED) Prescriptions: diazePAM [Valium] 5 mg PO TID PRN 3 Days #12 tab PRN Reason: Spasms diazePAM [Valium] 5 mg PO TID PRN 3 Days #12 tab PRN Reason: Spasms Is patient prescribed a controlled substance at d/c from ED?: Yes Referrals: Earnest Escobar DO [Primary Care Provider] - 1-2 days Jannet Tovar MD [REFERRING] - 1-2 days
[2023-07-04 16:38] LABS: Basophils # (A) 0.1 k/uL (0-0.2); Basophils % (A) 1 %; Eosinophils # (A) 0.2 k/uL (0-0.7); Eosinophils % (A) 2 %; HCT 50.9 % (39.0-53.0); HGB 17.3 gm/dL (13.0-17.5); Lymphocytes # (A) 4.1 k/uL (1.0-4.8); Lymphocytes % (A) 31 %; MCH 30.2 pg (25.0-35.0); MCV 88.9 fL (80.0-100.0); Mean Platelet Volume 8.9; Monocytes # (A) 0.7 k/uL (0-1.0); Monocytes % (A) 5 %; Neutrophils # (A) 8.2 k/uL (1.3-7.7); Neutrophils % (A) 61 %; Platelet Count 230 k/uL (150-450); RBC 5.73 m/uL (4.30-5.90); RDW 13.2 % (11.5-15.5); WBC 13.4 k/uL (3.8-10.6)
--- NOTE | 2023-07-04 16:43 | XR ---
EXAMINATION TYPE: XR chest 2V DATE OF EXAM: 07/04/2023 4:35 PM CLINICAL INDICATION:Male, 68 years old with history of difficulty breathing; [facility] COMPARISON: 02/05/2020 TECHNIQUE: XR chest 2V Frontal and lateral views of the chest. FINDINGS: Lungs/Pleura: There is no evidence of pleural effusion, focal consolidation, or pneumothorax. Pulmonary vascularity: Unremarkable. Heart/mediastinum: Cardiomediastinal silhouette is unremarkable. Musculoskeletal: No acute osseous pathology. IMPRESSION: No acute cardiopulmonary disease/process.
[2023-07-04 16:51] LABS: INR 0.9 (<1.2); Partial Thromboplastin Time 23.7 sec (22.0-30.0); Prothrombin Time 10.4 sec (10.0-12.5)
[2023-07-04 16:52] LABS: ALT 22 U/L (4-49); AST 45 U/L (17-59); African American GFR (CKD) >90 (>60 ml/min/1.73 sqM); Albumin 4.7 g/dL (3.5-5.0); Alkaline Phosphatase 71 U/L (38-126); Anion Gap 10 mmol/L; Blood Urea Nitrogen 18 mg/dL (9-20); Calcium 9.3 mg/dL (8.4-10.2); Carbon Dioxide 22 mmol/L (22-30); Chloride 105 mmol/L (98-107); Glucose 98 mg/dL (74-99); Magnesium 2.2 mg/dL (1.6-2.3); Non-African American GFR(CKD) 85 (>60 ml/min/1.73 sqM); Sodium 137 mmol/L (137-145); Total Bilirubin 1.2 mg/dL (0.2-1.3); Total Protein 7.9 g/dL (6.3-8.2)
[2023-07-04 16:58] LABS: Potassium 5.1 mmol/L (3.5-5.1)
[2023-07-04] MEDS: SODIUM CHLORIDE 0.9% 500 ML 500 ML IV STA (17:45)
[2023-07-04 18:10] LABS: VBG PH 7.41 (7.31-7.41)
[2023-07-04 19:04] VITALS: BP 147/81; PULSE 91; RESP 18; TEMP 98.1
== END 2023-07-04 19:19 | disposition home or self-care (01) ==
LOC: EC 14:51
DX: G20.A1 Parkinson's disease without dyskinesia, without mention of fluctuations (principal); M62.838 Other muscle spasm; I49.8 Other specified cardiac arrhythmias; I10 Essential (primary) hypertension; J44.9 Chronic obstructive pulmonary disease, unspecified; F17.200 Nicotine dependence, unspecified, uncomplicated; F12.90 Cannabis use, unspecified, uncomplicated; Z86.73 Personal history of transient ischemic attack (TIA), and cerebral infarction without residual deficits; Z90.49 Acquired absence of other specified parts of digestive tract
CPT/HCPCS: 36415; 93005; 80053; 82803; 83735; 84484; 85025; 85610; 85730; 71046; 99285; 96374; 96361; J3360